=== PATIENT | female | born 1970 | race Caucasian/White ===

== ENCOUNTER 2016-11-23 15:11 | Inpatient (IN) | payer OTHER ==
[~2016-11-23] VITALS: Ht 157.5 cm; Wt 66.2 kg
[~2016-11-23 15:11] MED LIST: CONZIP100 MG PO; OXYCODONE5 M1 PO; XANAX0.5 M1 PO; ZOLOFT25 M1 PO
--- NOTE | 2016-11-23 15:27 | NUR ---
Informed waiting has been performed.
--- NOTE | 2016-11-23 15:27 | NUR ---
TRIAGE: PT TO ER C/C "I THINK I'M HAVING SOME MENTAL HEALTH ISSUES. I HAVE A THYROID PROBLEM AND I'M NOT SURE THAT THE MEDICATIONS ARE WORKING PROPERLY. I'M JUST VERY OVERWHELMED AND NOT FEELING VERY WELL." DENIES SI/HI. DENIES ANY ETOH OR SUBSTANCE USE/ABUSE. [facility].
--- NOTE | 2016-11-23 18:48 | ED PSYCHIATRIC COMPLAINT ---
History of Present Illness General Chief Complaint: General Adult Stated Complaint: "I JUST WANT TO TALK TO A DOCTOR,PLEASE" Source: patient, old records Exam Limitations: no limitations Allergies Coded Allergies: NO KNOWN ALLERGIES (11/23/16) Triage Note: TRIAGE: PT TO ER C/C "I THINK I'M HAVING SOME MENTAL HEALTH ISSUES. I HAVE A THYROID PROBLEM AND I'M NOT SURE THAT THE MEDICATIONS ARE WORKING PROPERLY. I'M JUST VERY OVERWHELMED AND NOT FEELING VERY WELL." DENIES SI/HI. DENIES ANY ETOH OR SUBSTANCE USE/ABUSE. [facility]. Triage Nurses Notes Reviewed? yes HPI: 46-year-old female with history of depression presents with complaints of feeling depressed, she denies specific suicidality at this time but feels as though she goes through periods in the day where she has thoughts of committing suicide. She has no active plan. She denies any drug or alcohol use. She denies any change in her medications. She is on thyroid medication and she is concerned that her thyroid is not working properly causing her to be more depressed. She has no nausea or vomiting no fever. She is taking methadone and clonidine, has not missed any doses and there was no recent change in medication. She would like to speak to a crisis counselor regarding her mental health issues. She does not have a psychiatric counselor at the moment. (CHECO SMITH) Vital Signs & Intake/Output Vital Signs & Intake/Output Vital Signs Date Time Temp Pulse Resp B/P Pulse O2 O2 Flow FiO2 Ox Delivery Rate 11/25 0819 98.1 80 18 128/78 / 0751 98.1 80 128/78 11/24 2206 98.7 89 18 110/88 11/24 1940 98.7 89 110/88 11/24 1542 99.1 92 119/80 03/ 1317 98.9 91 18 137/81 99 Room Air ED Intake and Output 11/25 0000 11/24 1200 Intake Total Output Total Balance Patient 146 lb Weight Reconcile Medications Albuterol Sulfate (Proair Hfa) 90 MCG HFA.AER.AD 2 PUF INH PRN ASTHMA ( Reported) Clonidine HCl 0.1 MG TABLET 1 TAB PO BID ANXIETY (Reported) Levothyroxine Sodium 88 MCG TABLET 1 TAB PO DAILY THYROID (Reported) Methadone HCl 5 MG/5 ML SOLUTION 37 MG PO DAILY MENTAL HEALTH (Reported) (LARISA ABURTO MD) Past History Travel History Traveled to [place] past 21 day No Medical History Any Pertinent Medical History? 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 No (CHECO SMITH) Review of Systems Review of Systems Constitutional: Reports: see HPI. EENTM: Reports: no symptoms. Respiratory: Reports: no symptoms. Cardiovascular: Reports: no symptoms. GI: Reports: no symptoms. Genitourinary: Reports: no symptoms. Musculoskeletal: Reports: no symptoms. Skin: Reports: no symptoms. Neurological/Psychological: Reports: see HPI. Hematologic/Endocrine: Reports: no symptoms. Immunologic/Allergic: Reports: no symptoms. All Other Systems: Reviewed and Negative (CHECO SMITH) Physical Exam Physical Exam General Appearance: well developed/nourished Head: atraumatic, normal appearance Eyes: Bilateral: normal appearance, PERRL, EOMI. 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 CRISIS CONSULT OBTAINED (LARISA ABURTO MD) Progress Hand-Off Endorsed To: LARISA ABURTO MD Endorsed Time: 1947 Pending: other (CRISIS EVAL) Comments: Patient states that she did not get her methadone dose this morning she was feeling well. She takes 37 mg per day. I discussed this with the [facility], I called the on-call clinician, [phone] who confirms that she did not make it to her appointment today. I told her that I would give her 37 mg dose tonight. The on-call clinician like us to call her if the patient is going to be admitted or kept overnight. She did state that she has been seeing a psychiatrist several times this month on the and on the as well for her mental health issues. (CHECO SMITH) Differential Diagnosis: drug intoxication, drug overdose, drug withdrawal, electrolyte abnormality Plan of Care: Orders Procedure Date/time Status PHYSICIAN CONSULT 11/25 UNK Active Regular Diet 11/24 D Active Vital Signs 11/24 1438 Active Inpt Psych Teach/Educate 11/24 1438 Active Nutritional Intake, Monitor 11/24 1438 Active Inpt Psych Auricular Acupunctu 11/24 1438 Active Add-on Test (ER Only) 11/24 1237 Active EKG 11/24 1209 Active Patient Data - inpatient psych 11/24 1201 Active Admit to inpatient psych 11/24 1201 Active URINE 11/24 0741 Complete Vital Signs 11/24 UNK Complete Nursing Misc 11/24 UNK Active Alternative Nursing Therapy 11/24 UNK Active Activity/Ambulation 11/24 UNK Complete MISSING MEDICATION FORM 11/24 UNK Active Intake & Output 11/23 1921 Complete Current Medications Sig/Jacob Start time Last Medication Dose Stop Time Status Admin Acetaminophen 650 MG Q6P PRN 11/24 1215 AC (Tylenol) Al Hydroxide/Mg 30 ML Q4-6 PRN PRN 11/24 1215 AC Hydroxide (Maalox Plus) Albuterol Sulfate 2 PUF Q6P PRN 11/24 1215 AC (Ventolin) Gabapentin 300 MG Q6P PRN 11/24 1215 AC (Neurontin) Magnesium Hydroxide 30 ML AT BEDTIME PRN 11/24 1215 AC (Milk Of Magnesia) Melatonin 5 MG AT BEDTIME NEED.. 11/24 1215 AC (Melatonin) Laboratory Tests 11/24/16 1208: Urine Test Cancelled Hand-Off Endorsed To: CED DE SANTIAGO MD Endorsed Time: 0700 Pending: consult (CRISIS) (LARISA ABURTO MD) Hand-Off Endorsed To: ESTEFANI LONDON DO Endorsed Time: 150 Pending: consult (CED DE SANTIAGO MD) Departure Departure Disposition: STILL A PATIENT Condition: Stable Clinical Impression Primary Impression: Depression Qualifiers: Depression Type: unspecified Qualified Code: F32.9 - Major depressive disorder, single episode, unspecified Referrals: PATIENT HAS NO PRIMARY CARE DR (PCP/Family) Departure Forms: Customer Survey General Discharge Information (CHECO SMITH) PA/LOG CUTTER Co-Sign Statement Statement: ED Attending supervision documentation- [] I saw and evaluated the patient. I have also reviewed all the pertinent lab results and diagnostic results. I agree with the findings and the plan of care as documented in the PA's/LOG CUTTER's documentation. [x] I have reviewed the ED Record and agree with the PA's/LOG CUTTER's documentation. [] Additions or exceptions (if any) to the PAs/LOG CUTTER's note and plan are summarized below: [] (ESTEFANI LONDON DO) called the on-call clinician, [phone] who confirms that she did not make it to her appointment today. I told her that I would give her 37 mg dose tonight. The on-call clinician like us to call her if the patient is going to be admitted or kept overnight. She did state that she has been seeing a psychiatrist several times this month on the and on the as well for her mental health issues. (CHECO SMITH) Differential Diagnosis: drug intoxication, drug overdose, drug withdrawal, electrolyte abnormality Hand-Off Endorsed To: CED DE SANTIAGO MD Endorsed Time: 0700 Pending: consult (CRISIS) (LARISA ABURTO MD) Hand-Off Endorsed To: ESTEFANI LONDON DO Endorsed Time: 150 Pending: consult (CED DE SANTIAGO MD) Departure Departure Disposition: STILL A PATIENT Condition: Stable Clinical Impression Primary Impression: Depression Qualifiers: Depression Type: unspecified Qualified Code: F32.9 - Major depressive disorder, single episode, unspecified Referrals: PATIENT HAS NO PRIMARY CARE DR (PCP/Family) Departure Forms: Customer Survey General Discharge Information (CHECO SMITH) PA/LOG CUTTER Co-Sign Statement Statement: ED Attending supervision documentation- [] I saw and evaluated the patient. I have also reviewed all the pertinent lab results and diagnostic results. I agree with the findings and the plan of care as documented in the PA's/LOG CUTTER's documentation. [x] I have reviewed the ED Record and agree with the PA's/LOG CUTTER's documentation. [] Additions or exceptions (if any) to the PAs/LOG CUTTER's note and plan are summarized below: [] (ESTEFANI LONDON DO)
[2016-11-23 19:24] LABS: ABSOLUTE BASOPHIL COUNT 0.1 /CUMM (0.0-0.2); ABSOLUTE EOSINOPHIL COUNT 0.1 /CUMM (0.0-0.7); ABSOLUTE GRANULOCYTE CT 5.6 /CUMM (1.4-6.5); ABSOLUTE LYMPH COUNT 2.7 /CUMM (1.2-3.4); ABSOLUTE MONOCYTE COUNT 0.6 /CUMM (0.10-0.60); BASOPHIL % 1.1 % (0.0-2.0); EOSINOPHIL % 1.5 % (0-5); GRANULOCYTE % 61.3 % (42.2-75.2); HEMATOCRIT 42.5 % (37-47); MEAN CORPUSCULAR HGB 29.9 PG (27.0-31.0); MEAN CORPUSCULAR HGB CONC 33.3 G/DL (33.0-37.0); MEAN CORPUSCULAR VOLUME 89.7 FL (81.0-99.0); MEAN PLATELET VOLUME 8.4 FL (7.4-10.4); PLATELET COUNT 293 /CUMM (130-400); RBC DISTRIBUTION WIDTH 12.9 % (11.5-14.5); RED BLOOD CELL CT 4.74 /CUMM (4.20-5.40); WHITE BLOOD CELL COUNT 9.1 /CUMM (4.8-10.8)
--- NOTE | 2016-11-23 19:44 | NUR ---
PHARMACY CALLED FOR MEDICATION.
[2016-11-23] MEDS ORDERED: METHADONE H5 MG/5 M2 PO (20:06)
[2016-11-23] MEDS ORDERED: PROAIR HFA8.5 GM INH (20:07)
[2016-11-23] MEDS ORDERED: CLONIDINE HCL0.1 MG PO (20:07)
[2016-11-23] MEDS ORDERED: LEVOTHYROXINE88 MCG PO (20:07)
--- NOTE | 2016-11-23 20:16 | NUR ---
PT MEDICATED WITH 35MG METHADONE PO.
--- NOTE | 2016-11-23 20:35 | NUR ---
URINE SPECIMEN REQUESTED. PT AMBULATORY TO RESTROOM WITH FAST AND STEADY GAIT.
--- NOTE | 2016-11-23 20:48 | NUR ---
PT RETURNS FROM RESTROOM, STATES THAT SHE IS UNABLE TO URINATE AT THIS TIME.
--- NOTE | 2016-11-23 21:16 | ED PSY CRISIS COLLATERAL NOTE ---
See Addendum Collateral Note Collateral Note Family/Inform/Kyle Contacts: Sw spoke with the patients son, Harinder Anand ([phone]), for collateral information. Harinder notes that his mother began to have mental health issues about 1 year ago. He is not able to articulate any trigger for her sudden symptoms. He notes that she was admitted to [facility] (about 1 year ago) and [facility] (May 2016). He states since being discharged from [facility], that she was doing well, until 1 week ago. He states that she started "acting weird," and making paranoid statements. Harinder notes that she began to state that "everyone is out to get her," noting she recently started to believe, that her family is also out to get her. Harinder notes that he spoke with his mother and she agreed to come to the hospital, however stated, "next time this happens, she's not going to deal with it." Harinder is not sure what she meant by this statement, however is questioning whether or not she is referring to suicide. He does report that she was recently anxious about a follow up on her Thyroid issues, and he is not sure if this triggered her increase in symptoms. He notes that she in on Methadone Maintenance and believes that is is for pain, however states that she never really talks about it. He does note that he has never known her to have any issues with addiction. He would like to be kept updated re: plan of care and is available if additional information is needed.
--- NOTE | 2016-11-23 21:44 | NUR ---
PT SITTING CALMLY IN HALLWAY DRINKING SONI MONSE. PT REPORTS BEING ON METHADONE MAINTENANCE OF 35MG/DAY THROUGH [facility] IN [place]. PT REPORTS SHE HAS BEEN FEELING ANXIOUS, HAVING POOR SLEEP AND NO CHANGE IN APPETITE. SITTER AT BEDSIDE FOR SAFETY
--- NOTE | 2016-11-23 21:46 | NUR ---
Crisis consult received, however the patient has not provided a urine at this time. The patient will be held over and evaluated in the AM. SW spoke to her son, for collateral information, please see separate note. Case discussed with STEVE Barnye and Dr. Mccann.
--- NOTE | 2016-11-23 22:35 | NUR ---
PT CALM AND COOPERATIVE LYING ON STRETCHER IN HU E. PT PROVIDED WITH BOX LUNCH. PT MADE AWARE WE WILL NEED A URINE SAMPLE. SITTER AT BEDSIDE.
--- NOTE | 2016-11-24 00:10 | NUR ---
AWAKE ON STRETCHER IN HU SITTER AT BEDSIDE. CO FEELING ANXIOUS. "I USUALLY TAKE CLONIDINE"
--- NOTE | 2016-11-24 00:17 | NUR ---
DR ABURTO AWARE CLONIDINE ORDERED AND GIVEN PO
--- NOTE | 2016-11-24 03:20 | NUR ---
RESTLESS. WALKING AROUND BH AND POD 2.
--- NOTE | 2016-11-24 05:15 | NUR ---
CONTINUES TO PACE AROUND BH AND POD 2. STATES "I AM JUST VERY WORRIED ABOUT THINGS AND WANT TO GET IT ALL TAKEN CARE OF" PT REINFORCED THAT SHE WILL BE EVALUATED THIS AM WHEN CRISIS COMES IN THIS AM.
--- NOTE | 2016-11-24 07:30 | NUR ---
PT AMBULATING IN HALLWAY, ASKING FOR CLOTHES BACK. PT AWARE SHE NEEDS TO SEE CRISIS THIS AM. Informed waiting has been performed.
--- NOTE | 2016-11-24 07:47 | NUR ---
URINE TRIO SENT TO LAB.
--- NOTE | 2016-11-24 09:30 | NUR ---
PT HAS BEEN SITTING CALMLY IN CHAIR IN HALLWAY AWAITING CRISIS DISPO. SITTER PRESENT.
--- NOTE | 2016-11-24 11:15 | NUR ---
PT SPEAKING WITH CRISIS
--- NOTE | 2016-11-24 11:21 | ED PSYCH CRISIS CONSULTATION ---
Crisis Consult Basic Assessment Date of Consult: 11/24/16 Responsible Person/Accompanied By: self Insurance Authorization: Insurance #1: Insurance name: [employer] Phone number: Policy number: [id number] Group number: Authorization number: ED Provider: Patient's ED Provider: CRISELDA RYDER,LARISA Dong Primary Care Physician: Patient's PCP: PATIENT HAS NO PRIMARY CARE DR PCP's Phone Number: Current Psychiatrist: [facility] Chief Complaint: General Adult Patient's Quote: "Am I being admitted as myself or someone else?" Present Illness: Pt is a 46yo female who self presented at the advise of her son Harinder Anand who was worried she has decompensated over the past week. Please see crisis collateral note. Pt has 2 prior inpt psych admits for Depression with psychotic features in 2016. First was [facility] and then [facility] in May 2016. Pt is currently in Out pt tx at [facility] [place]. Upon crisis eval, pt presents as depressed,anxious, paranoid, and some what confused, disorganized, nonsensical, and thought blocking. Pt stated that she is having difficulty communicating what she is going through and is not sure how to explain it. Pt stated that she has been hearing voices, but when asked what the voices say, she further explains that she can not explain it and that it is more like something is controlling her and she is not sure if she is doing the right thing and gets very anxious about it and it "gets worse when they leave." When asked about who she was referring to when she says, "when they leave." pt was not able to specify who. pt states that she lives alone and feels isolated. Pt reports that it has gotten so bad that she stopped going to work over the past 2 days because she has not been able to function. Pt was noted to pace up and down the halls asking to speak with her son. Later she stated that her parents are here and she needs to speak with them, but they were not present in the ED. Pt is agreeable to being admitted to [facility] and signed in voluntarily. When she was signing in, she asked "am I being admitted as myself or someone else?" Case reviewed with Dr. Dawkins of Psychiatry and who agrees pt may be admitted. Patient's Address: [address] [place] [id number] Other Phone Number: Who Do You Live With? Patient/Self Family/Informants Interviewed: son Harinder Allergies - Coded Allergies: NO KNOWN ALLERGIES (11/23/16) Current Medications - Scheduled Medications Clonidine HCl 0.1 MG TABLET 1 TAB PO BID ANXIETY #60 (Reported) Entered as Reported by COLLEEN SAVAGE on 11/23/162006 Levothyroxine Sodium 88 MCG TABLET 1 TAB PO DAILY THYROID #90 (Reported) Entered as Reported by COLLEEN SAVAGE on 11/23/162006 Methadone HCl 5 MG/5 ML SOLUTION 37 MG PO DAILY MENTAL HEALTH (Reported) Entered as Reported by COLLEEN SAVAGE on 11/23/162005 Scheduled PRN Medications Albuterol Sulfate (Proair Hfa) 90 MCG HFA.AER.AD 2 PUF INH PRN ASTHMA #1 ( Reported) Entered as Reported by COLLEEN SAVAGE on 11/23/162006 Laboratory Results: Laboratory Tests 11/24/16 0740: Urine Opiates Screen < 100.00, Methadone Screen > 735 H, Barbiturate Screen < 60, Ur Phencyclidine Scrn < 6.00, Amphetamines Screen 106, U Benzodiazepines Scrn < 85, Urine Cocaine Screen < 50, Urine Cannabis Screen < 5.00 11/23/16 191: Anion Gap 10, Estimated GFR > 60, BUN/Creatinine Ratio 8.6, Glucose 102 H, Calcium 10.0, Total Bilirubin 0.7, AST 25, ALT 32, Alkaline Phosphatase 96, Total Protein 7.7, Albumin 4.7, Globulin 3.0, Albumin/Globulin Ratio 1.6, TSH 1.750, Free T4 2.02 H, Thyroxine Binding Indx 36.2, CBC w Diff NO MAN DIFF REQ, RBC 4.74, MCV 89.7, MCH 29.9, RDW 12.9, MPV 8.4, Gran % 61.3, Lymphocytes % 29.5 , Monocytes % 6.6, Eosinophils % 1.5, Basophils % 1.1, Absolute Granulocytes 5.6 , Absolute Lymphocytes 2.7, Absolute Monocytes 0.6, Absolute Eosinophils 0.1, Absolute Basophils 0.1, PUBS MCHC 33.3, Serum Alcohol < 10.0 11/23/16 1842: Methadone Screen Cancelled, Barbiturate Screen Cancelled, Ur Phencyclidine Scrn Cancelled, Amphetamines Screen Cancelled, U Benzodiazepines Scrn Cancelled, Urine Cocaine Screen Cancelled, Urine Cannabis Screen Cancelled Past History Past Medical History Neurological: NONE EENT: NONE Cardiovascular: NONE Respiratory: NONE Gastrointestinal: NONE Hepatic: NONE Renal: NONE Musculoskeletal: disk herniation Psychiatric: anxiety, chronic pain disorder, opioid dependence (methadone for pain management) Endocrine: NONE Blood Disorders: anemia Cancer(s): NONE 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 Psychiatric Treatment History Psych Treatment Psychiatric Treatment Yes Inpatient Treatment Yes Outpatient Treatment Yes [facility] of [facility] Reason for Treatment Depression with psychotic features Dates of Treatment 2016 Response to Treatment variable Diagnosis by History: Depression with psychotic features Substance Use/Abuse History Drug Use/Abuse Substances Used/Abused Yes Substance Used/Abused Other (list in comments) (Methadone) How much used/taken 37mg How often daily as prescribed by [facility] Substance Abuse Treatment Substance Abuse Treatment Past Substance Abuse [place] No Inpatient Treatment No Outpatient Treatment No Current Mental Status Mental Status Orientation: Confused Affect: Anxious, Blunted, Constricted, Depressed, Flat, Hopeless, Sad Speech: Delayed, Evasive Neuro-vegetative: Anhedonia, Concentration Poor, Energy Decreased, Helpless, Loss of Interest Appearance Appearance- Dress/Hygiene: unkempt, good eye contact Behaviors Thought Process: Irrational, Loose Association, Thought Blocking Thought Content: Auditory Hallucinations, Delusions, Paranoid, Thought Blocking Memory: WNL Insight: Fair SI/HI Risk Assessment Past Suicidal Ideation/Attempts Yes Current Suicidal Ideation/Att Yes Past Homicidal Ideation/Att: No Current Homicidal Ideation/Attempts No Degree of Intent: Thoughts/No Intent Gravely Disabled: Inability Risk Factors: chronic/serious med cond., high anxiety/distress, SA/MH hospitalized, lives alone, limited support Lethality Ratin PTSD Checklist PTSD Done? 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 Current GAF: 25 Comments: On Methdone 37mg throught [facility] due to chronic back pain Hypothyroidism Departure Disposition Psych Medical Clearance Date: 11/24/16 Medically Cleared at: 1045 Time Started: 1045 Time Ended: 1115 Psychiatrist Consulted: Jomar Dawkins MD Date Disposition Established: 11/24/16 Time Disposition Established: 1145 Plan for Disposition - Modality: Inpatient Psychiatry Facility: [facility] Rationale for Disposition: safety and stabilization of sx Type of IP Admission: Voluntary Referrals PATIENT HAS NO PRIMARY CARE DR (PCP/Family)
--- NOTE | 2016-11-24 12:25 | NUR ---
MED WITH NICOTINE 14MG, MULTIVITAMIN, SYNTHROID 0.088MG, AND ZYPREXA 5 MG PO, TOLERATED WELL, PT REMAINS CALM AND COOPERATIVE.
--- NOTE | 2016-11-24 13:36 | IP CRISIS DIAG ASSESS PSYCH ---
Diagnostic Assessment Basic Assessment Insurance Authorization: Insurance #1: Insurance name: YUMIKO Phone number: [phone] Policy number: [id number] Group number: Authorization number: [id number] D[place] approved 11/24-11/28/16 Primary Care Physician: Patient's PCP: PATIENT HAS NO PRIMARY CARE DR PCP's Phone Number: Patient's Quote: "Am I being admitted as myself or someone else?" Present Illness: 46-year-old female with history of depression presents with complaints of feeling depressed, she denies specific suicidality at this time but feels as though she goes through periods in the day where she has thoughts of committing suicide. She has no active plan. She denies any drug or alcohol use. She denies any change in her medications. She is on thyroid medication and she is concerned that her thyroid is not working properly causing her to be more depressed. She has no nausea or vomiting no fever. She is taking methadone and clonidine, has not missed any doses and there was no recent change in medication. She would like to speak to a crisis counselor regarding her mental health issues. She does not have a psychiatric counselor at the moment. (JANESSA HAND,CHECO) Cassandra spoke with the patients son, Harinder Anand ([phone]), for collateral information. Harinder notes that his mother began to have mental health issues about 1 year ago. He is not able to articulate any trigger for her sudden symptoms. He notes that she was admitted to [facility] (about 1 year ago) and [facility] (May 2016). He states since being discharged from [facility], that she was doing well, until 1 week ago. He states that she started "acting weird," and making paranoid statements. Harinder notes that she began to state that "everyone is out to get her," noting she recently started to believe, that her family is also out to get her. Harinder notes that he spoke with his mother and she agreed to come to the hospital, however stated, "next time this happens, she's not going to deal with it." Harinder is not sure what she meant by this statement, however is questioning whether or not she is referring to suicide. He does report that she was recently anxious about a follow up on her Thyroid issues, and he is not sure if this triggered her increase in symptoms. He notes that she in on Methadone Maintenance and believes that is is for pain, however states that she never really talks about it. He does note that he has never known her to have any issues with addiction. He would like to be kept updated re: plan of care and is available if additional information is needed. 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 Please see crisis collateral note above. Pt has 2 prior inpt psych admits for Depression with psychotic features in 2016. First was [facility] and then [facility] in May 2016. Pt is currently in Out pt tx at [facility] [place]. Upon crisis eval, pt presents as depressed,anxious, paranoid, and some what confused, disorganized, nonsensical, and thought blocking. Pt stated that she is having difficulty communicating what she is going through and is not sure how to explain it. Pt stated that she has been hearing voices, but when asked what the voices say, she further explains that she can not explain it and that it is more like something is controlling her and she is not sure if she is doing the right thing and gets very anxious about it and it "gets worse when they leave." When asked about who she was referring to when she says, "when they leave." pt was not able to specify who. pt states that she lives alone and feels isolated. Pt reports that it has gotten so bad that she stopped going to work over the past 2 days because she has not been able to function. Pt was noted to pace up and down the halls asking to speak with her son. Later she stated that her parents are here and she needs to speak with them, but they were not present in the ED. Pt is agreeable to being admitted to [facility] and signed in voluntarily. When she was signing in, she asked "am I being admitted as myself or someone else?" Case reviewed with Dr. Dawkins of Psychiatry and who agrees pt may be admitted. Patient's Address: [address] [place] [id number] Other Phone Number: Who Do You Live With? Patient/Self Feel Safe Where You Live? No (thinks she is being controled) Feel Safe in Your Relationship No (paraqnoia) If No, Please Elaborate: Pt thinks that others are controling her Marital Status: single Do You Have Children? Yes Ages? 20, 23, 30 Primary Language? Liberian Language(s) Spoken At Home: Liberian Family/Informants Interviewed: son Harinder Allergies - Coded Allergies: NO KNOWN ALLERGIES (11/23/16) Current Medications - Scheduled Medications Clonidine HCl 0.1 MG TABLET 1 TAB PO BID ANXIETY #60 (Reported) Entered as Reported by COLLEEN SAVAGE on 11/23/162006 Levothyroxine Sodium 88 MCG TABLET 1 TAB PO DAILY THYROID #90 (Reported) Entered as Reported by COLLEEN SAVAGE on 11/23/162006 Methadone HCl 5 MG/5 ML SOLUTION 37 MG PO DAILY MENTAL HEALTH (Reported) Entered as Reported by COLLEEN SAVAGE on 11/23/162005 Scheduled PRN Medications Albuterol Sulfate (Proair Hfa) 90 MCG HFA.AER.AD 2 PUF INH PRN ASTHMA #1 ( Reported) Entered as Reported by COLLEEN SAVAGE on 11/23/162006 Lab Results: Laboratory Tests 11/24/16 1208: Urine Test Cancelled 11/24/16 0741: Urine Test NEGATIVE 11/24/16 0740: Urine Opiates Screen < 100.00, Methadone Screen > 735 H, Barbiturate Screen < 60, Ur Phencyclidine Scrn < 6.00, Amphetamines Screen 106, U Benzodiazepines Scrn < 85, Urine Cocaine Screen < 50, Urine Cannabis Screen < 5.00 11/23/16 1911: Anion Gap 10, Estimated GFR > 60, BUN/Creatinine Ratio 8.6, Glucose 102 H, Calcium 10.0, Total Bilirubin 0.7, AST 25, ALT 32, Alkaline Phosphatase 96, Total Protein 7.7, Albumin 4.7, Globulin 3.0, Albumin/Globulin Ratio 1.6, TSH 1.750, Free T4 2.02 H, Thyroxine Binding Indx 36.2, CBC w Diff NO MAN DIFF REQ, RBC 4.74, MCV 89.7, MCH 29.9, RDW 12.9, MPV 8.4, Gran % 61.3, Lymphocytes % 29.5 , Monocytes % 6.6, Eosinophils % 1.5, Basophils % 1.1, Absolute Granulocytes 5.6 , Absolute Lymphocytes 2.7, Absolute Monocytes 0.6, Absolute Eosinophils 0.1, Absolute Basophils 0.1, PUBS MCHC 33.3, Serum Alcohol < 10.0 11/23/16 1842: Methadone Screen Cancelled, Barbiturate Screen Cancelled, Ur Phencyclidine Scrn Cancelled, Amphetamines Screen Cancelled, U Benzodiazepines Scrn Cancelled, Urine Cocaine Screen Cancelled, Urine Cannabis Screen Cancelled Toxicology Screen Completed? Yes Results: positive Past History Past Surgical History Surgical History FOOT SURGERY Abuse/Trauma History Trauma History/Current Trauma: the loss of her father, has always been hard Patient's Age at Time of Trauma: 4 History of Trauma/Abuse Treatment? No Psychosocial History Strengths/Capabilities: Patient seeking help and responsible for own mental health Physical Limitations (Interventions): Patient reports chronic back pain. Psychiatric Treatment History Psych Treatment Psychiatric Treatment Yes Inpatient Treatment Yes Outpatient Treatment Yes [facility] Reason for Treatment Depression with psychotic features Dates of Treatment 2016 Response to Treatment variable Diagnosis by History: Depression with psychotic features Risk Factors: chronic/serious med cond., high anxiety/distress, SA/MH hospitalized, lives alone, limited support Substance Use/Abuse History Drug Use/Abuse minimum 12mo Hx Substances Used/Abused Yes Substance Used/Abused Other (list in comments) (Methadone) How much used/taken 37mg How often daily as prescribed by [facility] Substance Abuse Treatment Substance Abuse Treatment Past Substance Abuse [place] No Inpatient Treatment No Outpatient Treatment No Education History Highest Level of Education: high school/GED, bachelor's degree Current Mental Status Mental Status Orientation: Confused Affect: Anxious, Blunted, Constricted, Depressed, Flat, Hopeless, Sad Speech: Delayed, Evasive Neuro-vegetative: Anhedonia, Concentration Poor, Energy Decreased, Helpless, Loss of Interest Appearance Appearance- Dress/Hygiene: unkempt, good eye contact Behaviors Thought Process: Irrational, Loose Association, Thought Blocking Thought Content: Auditory Hallucinations, Delusions, Paranoid, Thought Blocking Memory: WNL Insight: Fair SI/HI Risk Assessment - Minimum 6mo History- Past Suicidal Ideation/Attempts Yes Current Suicidal Ideation/Att Yes Past Homicidal Ideation/Att: No Current Homicidal Ideation/Attempts No Degree of Intent: Thoughts/No Intent Gravely Disabled: Inability Risk Factors: chronic/serious med cond., high anxiety/distress, SA/MH hospitalized, lives alone, limited support Lethality Ratin Needs/Init TX Plan/Goals: safety and stabilization of sx, individual group and family therapy, med eval AUDIT-C Questionnaire: AUDIT-C Questionnaire: Response Value ETOH use in the past year Never 0 # drinks typical/day Doesn't Drink 0 6 or > drinks per occasion Never 0 Total 0 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 Current GAF: 25 Comments: On Methdone 37mg throught [facility] due to chronic back pain Hypothyroidism
--- NOTE | 2016-11-24 13:46 | SOCIAL WORKER SOCIAL HX PSYCH ---
Social History Basic Assessment Insurance Authorization: Insurance #1: Insurance name: YUMIKO Phone number: Policy number: [id number] Group number: Authorization number: Curr Source of Income/Entitlements: employment Primary Care Physician: Patient's PCP: PATIENT HAS NO PRIMARY CARE DR PCP's Phone Number: Present Problem: 46-year-old female with history of depression presents with complaints of feeling depressed, she denies specific suicidality at this time but feels as though she goes through periods in the day where she has thoughts of committing suicide. She has no active plan. She denies any drug or alcohol use. She denies any change in her medications. She is on thyroid medication and she is concerned that her thyroid is not working properly causing her to be more depressed. She has no nausea or vomiting no fever. She is taking methadone and clonidine, has not missed any doses and there was no recent change in medication. She would like to speak to a crisis counselor regarding her mental health issues. She does not have a psychiatric counselor at the moment. (JANESSA HAND,CHECO) Cassandra spoke with the patients son, Harinder Anand ([phone]), for collateral information. Harinder notes that his mother began to have mental health issues about 1 year ago. He is not able to articulate any trigger for her sudden symptoms. He notes that she was admitted to [facility] (about 1 year ago) and [facility] (May 2016). He states since being discharged from [facility], that she was doing well, until 1 week ago. He states that she started "acting weird," and making paranoid statements. Harinder notes that she began to state that "everyone is out to get her," noting she recently started to believe, that her family is also out to get her. Harinder notes that he spoke with his mother and she agreed to come to the hospital, however stated, "next time this happens, she's not going to deal with it." Harinder is not sure what she meant by this statement, however is questioning whether or not she is referring to suicide. He does report that she was recently anxious about a follow up on her Thyroid issues, and he is not sure if this triggered her increase in symptoms. He notes that she in on Methadone Maintenance and believes that is is for pain, however states that she never really talks about it. He does note that he has never known her to have any issues with addiction. He would like to be kept updated re: plan of care and is available if additional information is needed. 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 Please see crisis collateral note above. Pt has 2 prior inpt psych admits for Depression with psychotic features in 2015. First was [facility] and then [facility] in May 2016. Pt is currently in Out pt tx at [facility]. Upon crisis eval, pt presents as depressed,anxious, paranoid, and some what confused, disorganized, nonsensical, and thought blocking. Pt stated that she is having difficulty communicating what she is going through and is not sure how to explain it. Pt stated that she has been hearing voices, but when asked what the voices say, she further explains that she can not explain it and that it is more like something is controlling her and she is not sure if she is doing the right thing and gets very anxious about it and it "gets worse when they leave." When asked about who she was referring to when she says, "when they leave." pt was not able to specify who. pt states that she lives alone and feels isolated. Pt reports that it has gotten so bad that she stopped going to work over the past 2 days because she has not been able to function. Pt was noted to pace up and down the halls asking to speak with her son. Later she stated that her parents are here and she needs to speak with them, but they were not present in the ED. Pt is agreeable to being admitted to [facility] and signed in voluntarily. When she was signing in, she asked "am I being admitted as myself or someone else?" Case reviewed with Dr. Dawkins of Psychiatry and who agrees pt may be admitted. Primary Language? German Language(s) Spoken At Home: German Living Situation Rents or Owns Home? rents Other Living Arrangement: lives by herself Feel Safe Where You Are Living No Feel Safe in Relationships? No Comments: paranoia Allergies - Coded Allergies: NO KNOWN ALLERGIES (11/23/16) Current Medications - Scheduled Medications Clonidine HCl 0.1 MG TABLET 1 TAB PO BID ANXIETY #60 (Reported) Entered as Reported by COLLEEN SAVAGE on 11/23/162006 Levothyroxine Sodium 88 MCG TABLET 1 TAB PO DAILY THYROID #90 (Reported) Entered as Reported by COLLEEN SAVAGE on 11/23/162006 Methadone HCl 5 MG/5 ML SOLUTION 37 MG PO DAILY MENTAL HEALTH (Reported) Entered as Reported by COLLEEN SAVAGE on 11/23/162005 Scheduled PRN Medications Albuterol Sulfate (Proair Hfa) 90 MCG HFA.AER.AD 2 PUF INH PRN ASTHMA #1 ( Reported) Entered as Reported by COLLEEN SAVAGE on 11/23/162006 Past History Past Medical History Neurological: NONE EENT: NONE Cardiovascular: NONE Respiratory: NONE Gastrointestinal: NONE Hepatic: NONE Renal: NONE Musculoskeletal: disk herniation Psychiatric: anxiety, chronic pain disorder, opioid dependence (methadone for pain management) Endocrine: NONE Blood Disorders: anemia Cancer(s): NONE INTERNET SPECIALIST/Reproductive: NONE Past Surgical History Surgical History: non-contributory /Family History Place/Country of Origin: [place] Childhood Family Constellation: Mother, stepfather and grandparents. and one sister. Bio father passsed when pt was 4. Primary Childhood Caretakers: mother, step-parent Family Life During Childhood: stable/normal DCF Involvement? No Relationship w/Mother: good. Relationship w/Father: good, live in [place] parents are still . Any Sibling(s)? Yes Sibling's Gender(s)/Age(s): female Sibling 1: Relationship w/Sibling(s): supportive, good. Relationship w/Friends: none Family Psych/Sub Abuse/Add Hx: stepbrother had drug problem unsure of details. Number of Pregnancies: 6 Number of Miscarriages: 2 Number of Abortions: 1 Abuse/Trauma History Trauma History/Current Trauma: the loss of her father, has always been hard Patient's Age at Time of Trauma: 4 History of Trauma/Abuse Treatment? No Legal History Hx of Juvenile Legal Charges? No Psychosocial History Primary Support System: self Strengths/Capabilities: Patient seeking help and responsible for own mental health Physical Limitations (Interventions): Patient reports chronic back pain. Last Physical: 2014 History of Blackouts? No [place]/Social/Peer Relations most socializaing is with family Meaningful Activities: reading, walking, hiking Childhood Zoroastrian: Protestant Current Advent Affiliation: Protestant Is Spirituality Important to You? yes Are There Developmental Issues? No Milestones Achieved: fine motor, gross motor Psychiatric Treatment History Psych Treatment Inpatient Treatment Yes Outpatient Treatment Yes [facility] Reason for Treatment Depression with psychotic features Dates of Treatment 2016 Response to Treatment variable Diagnosis: Depression with psychotic features Risk Factors: chronic/serious med cond., high anxiety/distress, SA/MH hospitalized, lives alone, limited support Substance Use/Abuse History Drug Use/Abuse Substance Used/Abused Other (list in comments) (Methadone) How much used/taken 37mg How often daily as prescribed by [facility] Have You Ever Attended AA? 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 of Jobs in Last 5 Years: 1 Attendance: Normal Performance: Good History Have You Been in The ? No Current Mental Status Problem List: 1. Chronic back pain 2. Anxiety 3. Depression Mental Status Orientation: Confused Affect: Anxious, Blunted, Constricted, Depressed, Flat, Hopeless, Sad Speech: Delayed, Evasive Neuro-vegetative: Anhedonia, Concentration Poor, Energy Decreased, Helpless, Loss of Interest Appearance Appearance- Dress/Hygiene: unkempt, good eye contact Behaviors Thought Process: Irrational, Loose Association, Thought Blocking Thought Content: Auditory Hallucinations, Delusions, Paranoid, Thought Blocking Memory: WNL Insight: Fair SI/HI Risk Assessment Past Suicidal Ideation/Attempts Yes Current Suicidal Ideation/Att Yes Past Homicidal Ideation/Att: No Current Homicidal Ideation/Attempts No Degree of Intent: Thoughts/No Intent Gravely Disabled: Inability Lethality Ratin - Conclusion and Recommendations for treatment - and discharge planning Summary: 46-year-old female with history of depression presents with complaints of feeling depressed, she denies specific suicidality at this time but feels as though she goes through periods in the day where she has thoughts of committing suicide. She has no active plan. She denies any drug or alcohol use. She denies any change in her medications. She is on thyroid medication and she is concerned that her thyroid is not working properly causing her to be more depressed. She has no nausea or vomiting no fever. She is taking methadone and clonidine, has not missed any doses and there was no recent change in medication. She would like to speak to a crisis counselor regarding her mental health issues. She does not have a psychiatric counselor at the moment. (JANESSA HAND,CHECO) Cassandra spoke with the patients son, Harinder Anand ([phone]), for collateral information. Harinder notes that his mother began to have mental health issues about 1 year ago. He is not able to articulate any trigger for her sudden symptoms. He notes that she was admitted to [facility] (about 1 year ago) and [facility] (May 2016). He states since being discharged from [facility], that she was doing well, until 1 week ago. He states that she started "acting weird," and making paranoid statements. Harinder notes that she began to state that "everyone is out to get her," noting she recently started to believe, that her family is also out to get her. Harinder notes that he spoke with his mother and she agreed to come to the hospital, however stated, "next time this happens, she's not going to deal with it." Harinder is not sure what she meant by this statement, however is questioning whether or not she is referring to suicide. He does report that she was recently anxious about a follow up on her Thyroid issues, and he is not sure if this triggered her increase in symptoms. He notes that she in on Methadone Maintenance and believes that is is for pain, however states that she never really talks about it. He does note that he has never known her to have any issues with addiction. He would like to be kept updated re: plan of care and is available if additional information is needed. 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 Please see crisis collateral note above. Pt has 2 prior inpt psych admits for Depression with psychotic features in 2016. First was [facility] and then [facility] in May 2016. Pt is currently in Out pt tx at [facility]. Upon crisis eval, pt presents as depressed,anxious, paranoid, and some what confused, disorganized, nonsensical, and thought blocking. Pt stated that she is having difficulty communicating what she is going through and is not sure how to explain it. Pt stated that she has been hearing voices, but when asked what the voices say, she further explains that she can not explain it and that it is more like something is controlling her and she is not sure if she is doing the right thing and gets very anxious about it and it "gets worse when they leave." When asked about who she was referring to when she says, "when they leave." pt was not able to specify who. pt states that she lives alone and feels isolated. Pt reports that it has gotten so bad that she stopped going to work over the past 2 days because she has not been able to function. Pt was noted to pace up and down the halls asking to speak with her son. Later she stated that her parents are here and she needs to speak with them, but they were not present in the ED. Pt is agreeable to being admitted to [facility] and signed in voluntarily. When she was signing in, she asked "am I being admitted as myself or someone else?" Case reviewed with Dr. Dawkins of Psychiatry and who agrees pt may be admitted.
--- NOTE | 2016-11-24 14:15 | NUR ---
REPORT TO IDANIA MIEK.
--- NOTE | 2016-11-24 14:21 | NUR ---
PT GIVEN BACK 1 BELONGING BAG, 1 VALUABLE BAG. 1 BAG OF MEDS REMAINS LOCKED IN PHARMACY.
--- NOTE | 2016-11-24 14:25 | NUR ---
PT TO [facility] VIA W/C WITH SECURITY AND SITTER. CLINICAL STATUS UNCHANGED. PAPERWORK SENT.
[2016-11-24 15:42] VITALS: BP 119/80
--- NOTE | 2016-11-24 16:54 | NUR ---
Patient admitted from ED. Patient calm and cooperative reports increased anxiety and no recent stressors. Patient is alert and oriented to to person, place, time and situation. Patient currently denies SI/HI. Patient has a stable, flat affect. Not currently endorsing AH. Patient denies pain currently. PAtient reports son can make decisions for her in times of need. Information about advance directives have been provided. Endocrine consult indicated and visit will be made. Observeable skn areas, clean dry and intact. Looking forward to assisting patient with mental health
[2016-11-24 19:40] VITALS: BP 110/88
--- NOTE | 2016-11-24 21:26 | NUR ---
PT IS CALM, COOPERATIVE WITH STAFF AND PEERS, AND COMPLIANT WITH UNIT RULES. PT IS BOTH IN MILIEU AND IN PT ROOM, TAKING NAPS AT TIMES. PT MOOD IS STABLE, AFFECT IS EUTHYMIC, COMMUNICATION IS NORMAL, AND APPETITE IS NORMAL. PT DENIES SI AT THIS TIME.
--- NOTE | 2016-11-25 06:25 | NUR ---
PATIENT SLEPT ALL NIGHT WITH NO ISSUES.
[2016-11-25 07:51] VITALS: BP 128/78
--- NOTE | 2016-11-25 12:07 | CPS MD/APRN INITIAL ASSE PSYCH ---
Psychiatric Admission Medical Biller/Coder's Note Reviewed: Yes Patient Seen and Examined: Yes Identifying Information: Patient is a 46 y/o female. Chief Complaint: "My thoughts have been off." Reaction to Hospitalization: "I don't have a psychiatric issue. I'm pretty sure my symptoms are related to my thyroid." History of Present Illness Onset of Illness: Patient is a 46-year old female with a history of depression with psychotic features and hypothyroidism who presented to ED endorsing intermittent suicidal thoughts, depression, anxiety, paranoia, and was observed with disorganized thoughts, thought blocking and making nonsensical remarks. Patient was concerned that people were out to get her, and concerned that present state may be related to her thyroid function. On encounter today, the patient reported bringing herself to the ED after experiencing insomnia, intermittent AH, and difficulty concentrating over the last few weeks. She denied AH were command in nature. She described her thoughts as "scattered" and having difficulty articulating responses. She denied passive and active suicidal ideation, plans and intent. She denied homicidal ideation. She reported an absence of AH currently. Patient reported that she feels the cause of the above symptoms are related to her thyroid function, which was a rule out diagnosis during her last CPS admission in 05/2016 after an extensive endocrine work-up. 11/23/16 TSH and Thyroxine Binding Index were wnl. Free T4 was elevated at 2.02. Circumstances Leading to Admission: increased anxiety/depression, psychotic symptoms. 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 Substance Abuse History: Pt denied use of alcohol or illicits. Per chart history, patient with a 15 year history of prescription opiate abuse r /t to chronic pain issues. Reported now being prescribed methadone 37mg daily by [facility] for chronic pain. Reported that 1 week ago methadone dose was decreased from 45mg daily to 37mg daily. Patient informed she is receiving 35mg methadone daily and was agreeable to this. Pt reported vaping e-cigarrete daily. Allergies: Coded Allergies: NO KNOWN ALLERGIES (11/23/16) Home Med List: Clonidine 0.1mg twice daily (anxiety) Synthroid 88mcg every morning Methadone 37mg daily ([facility]) - Include any medical condition(s) that may - impact the patient's recovery/remission Past Medical History: -Disc herniation -Chronic pain -Hypothyroidism Past History Medical History Neurological: NONE EENT: NONE Cardiovascular: NONE Respiratory: NONE Gastrointestinal: NONE Hepatic: NONE Renal: NONE Musculoskeletal: disk herniation Psychiatric: anxiety, chronic pain disorder, opioid dependence (methadone for pain management) Endocrine: NONE Blood Disorders: anemia Cancer(s): NONE 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 Substance Use: Pt reported both her maternal uncle and brother had drug problems. Suicides: Pt denied. Social History Living Situation: Patient lives by herself in a rented apartment in [place]. Significant Relationships (family/friends): Family/friends Education: Bachelor's degree in accounting. Vocation/Occupation: Patient reported working FT at a [employer] doing [employer] work. Legal: Pt denied. Healthly Behaviors Screening Tobacco Screening Tobacco Use from ED Docu: Current Daily Use Daily Tobacco Use Amount/Type: Smokeless tobacco daily - If tobacco counseling indicated - the following topics are required. - #1 Recognizing dangerous situations. - #2 Coping Skills. - #3 Basic information about quitting. Status of Tobacco Cessation Counseling: #1, #2 AND #3 Completed Cessation Med Status: Nicotine Patch Ordered Alcohol Screening - ETOH screen POS if BAL >=80 or Audit-C>= M4/F3 Audit-C Score from Diag Assess: 0 Blood Alcohol Level: Laboratory Tests 11/23 1910 Toxicology Serum Alcohol (<10 MG/DL) < 10.0 Alcohol Use Screening Results: Neg per Audit C &/or BAL - If ETOH counseling indicated - the following topics are required. - #1 Express concern about the patient's - drinking at unhealthy levels, include informing - of national norms for moderate drinking: - men <= 14 drinks/week, max 4 drinks/occasion - women <= 7 drinks/week, max 3 drinks/occasion - #2 Providing feedback, including linking alcohol to - negative physical effects (liver injury, hypertension) - negative emotional effects (relationship problems and - depression) - negative occupational consequences (reduced work - performance) - #3 Advising the patient to abstain from alcohol or - to drink below national norms for moderate drinking - (as listed above). Status of ETOH Use Counseling: N/A B/C NO ETOH Use Metabolic Screening - Screen if on a Neuroleptic Medication - Metabolic screening should include: - Blood Pressure, BMI, Glucose or Hgb A1c, & a - Lipid profile from within the past 365 days. Metabolic Screening () Not Applicable, patient not on a neuroleptic. OR ([X]) Patient on a neuroleptic(s) . Enter below results for Glucose or Hemoglobin A1C, and lipid panel if obtained during the last 365 days. BMI: 26.700 Blood Pressure: 107/58 Laboratory Results (If applicable): Lab Cholesterol 225 MG/DL H 06/10/16 0640 Cholesterol/HDL Ratio 4 % 06/10/16 0640 Glucose 102 mg/dL H 11/23/16 1911 HDL Cholesterol 59 mg/dL 06/10/16 0640 LDL Cholesterol, Calc 139 mg/dL H 06/10/16 0640 Triglycerides 139 mg/dL 06/10/16 0640 Exam and Plan Mental Status Examination Ambulation Status: Steady and independent. Appearance: 46 y/o female, appeared older than stated age. Long hair, obese, discheveled. Attitude towards examiner: Calm, polite. Psychomotor activity: WNL Behavior: WNL Quality of speech: Some paucity in speech. Affect: Mostly constricted. Mood: "Ok, I guess." Patient denied acute symptoms of depression. Reported moderate anxiety. She denied feeling hopeless, worthless, or guilty. Reported feeling helpless over current symptoms. Suicidal Ideation: Pt denied. Homicidal Ideation: Pt denied. Hallucinations: Pt denied AH at present. Reported intermittent AH leading up to ED presentation. Paranoid/Delusional Material: None overtly evident. Difficulties with thought organization: At times showed delayed TP. Insight: Fair Judgment: Limited Orientation: A&Ox3 Cognition: Grossly intact Memory Function: Grossly intact Estimate of intellectual functioning: above average Assets/Strengths Patient Identified Assets/Strengths: Supportive family and friends; wants to feel better. Impression/Plan Impression and Plan: Patient is a 46- year old female with a history of depression with psychotic features and hypothyroidism who presented to ED for disorganized thoughts, AH and intermittent suicidal thoughts. She presently denied SI, plans and intent. Denied AH. Thought process appeared delayed at times with ? thought blocking. Patient unable to identify any current psychosocial stressors possibly leading to present symptoms. Patient concerned that symptoms are related to thyroid function, given prior history of this. Will monitor patient on unit for safety, mood, suicidal ideation and psychosis. Reviewed the risk/benefit/SE profiles of Zyprexa with the patient, including irreverisble movement disorders, metabolic syndrome, weight gain, diabetes, HTN, and HLD. Patient verbalized understanding of med education and currently agreeable to continuing for now to target disorganzied thoughts. - Include all active medical diagnosis that require tx DSM 5 Diagnosis(es): MDD, recurrent, severe with psychotic features R/O contribution of thyroid dysfunction to psychotic symptoms. - Initial Tx Plan for Active Psych & Medical Conditions Treatment Plan: 1. Monitor the patient on unit for safety, mood, suicidal ideation, and psychosis. 2. Obtain collateral from family and [facility]. 3. Continue Zyprexa 5mg BID for disorganized thoughts/intermittent AH. 4. Endocrine consult ordered primarily for patient reassurance of thyroid fxn, and elevated Free T4. 5. Once symptoms clinically stabilize, refer to [facility] level of care. 6. H&P per tone cabinet assembler team. 7. Continue current Synthroid dose for now per tone cabinet assembler Dr. Mitchell. 8. Will order rpt TSH and Free T4 given elevated Free T4 on CPS admission. - Factors that would help patient function - in a less restrictive setting. Factors: Alleviation/stabilization of AH. Organized thoughts. Medication adherence Outpatient treatment adherence.
[2016-11-25 12:09] VITALS: BP 107/58
--- NOTE | 2016-11-25 12:49 | NUR ---
Dr. Mitchell met with pt for H&P and currently Dr. Bolanos is meeting with pt as well to discuss labs and POC, no further orders at this time.
--- NOTE | 2016-11-25 13:10 | History & Physical ---
General Information and HPI History of Present Illness: This young female came in for hearing voices and was admitted for psychosis and psychiatric management she reports that from physical standpoint she has been doing fairly well without any specific new problems and has been taking her medication that includes Synthroid as well as clonidine and methadone given to her by [facility] in [place]. She reports that the thyroid medicine was started by manager scheduling about 6 months ago Her past history is significant for back surgery and chronic pain management and she claims she was on oxycodone for 15 years or so and the [facility] started her on methadone for withdrawal from OxyContin. She denies any other recent problems. She has been a smoker of cigarettes for most of her life and at least 25 years. She claims that she stopped smoking cigarettes last year and is using the vapor with electronic cigarettes. Allergies/Medications Allergies: Coded Allergies: NO KNOWN ALLERGIES (11/23/16) Home Med list Albuterol Sulfate (Proair Hfa) 90 MCG HFA.AER.AD 2 PUF INH PRN ASTHMA ( Reported) Clonidine HCl 0.1 MG TABLET 1 TAB PO BID ANXIETY (Reported) Levothyroxine Sodium 88 MCG TABLET 1 TAB PO DAILY THYROID (Reported) Methadone HCl 5 MG/5 ML SOLUTION 37 MG PO DAILY MENTAL HEALTH (Reported) Past History Travel History Traveled to [place] past 21 day No Medical History Neurological: NONE EENT: NONE Cardiovascular: NONE Respiratory: NONE Gastrointestinal: NONE Hepatic: NONE Renal: NONE Musculoskeletal: disk herniation Psychiatric: anxiety, chronic pain disorder, opioid dependence (methadone for pain management) Endocrine: NONE Blood Disorders: anemia Cancer(s): NONE 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 Denies: fever, malaise, weakness. EENTM: Denies: no symptoms. Cardiovascular: Denies: no symptoms. Respiratory: Denies: no symptoms. GI: Denies: no symptoms. Genitourinary: Denies: no symptoms. Musculoskeletal: Reports: see HPI, back pain, joint pain. Skin: Denies: no symptoms. Neurological/Psychological: Reports: see HPI, anxiety, depressed, emotional problems. Hematologic/Endocrine: Denies: no symptoms. Immunologic/Allergic: Denies: no symptoms. All Other Systems: Reviewed and Negative Exam & Diagnostic Data Last 24 Hrs of Vital Signs/I&O Vital Signs Date Time Temp Pulse Resp B/P Pulse O2 O2 Flow FiO2 Ox Delivery Rate 03 1209 79 107/58 11/25 0819 98.1 80 18 128/78 11/25 0751 98.1 80 128/78 11/24 2206 98.7 89 18 110/88 11/24 1940 98.7 89 110/88 11/24 1542 99.1 92 119/80 03 1317 98.9 91 18 137/81 99 Room Air Physical Exam General Appearance Alert, Oriented X3, Cooperative, No Acute Distress Skin No Rashes, No Breakdown, No Significant Lesion HEENT Atraumatic, PERRLA, EOMI, Mucous Membr. moist/pink Neck Supple, No JVD, No thryomegaly, +2 Carotid Pulse wo Bruit Lymphatic Cervical nl Cardiovascular Regular Rate, Normal S1, Normal S2, No Murmurs, Gallops, Rubs Lungs Clear to Auscultation, Normal Air Movement Abdomen Soft, No Tenderness, No Hepatospenomegaly, No Masses Neurological Exam Findings: Normal Gait, Normal Speech, Strength at 5/5 X4 Ext, Normal Tone, Cranial Nerves 3-12 NL, Reflexes 2+ Cranial Nerves II through XII: And within normal limits Extremities No Clubbing, No Cyanosis, No Edema, No Tenderness/Swelling Assessment/Plan Assessment: And this young female is admitted with hallucinations and hearing voices and psychosis. She has a history of chronic pain and has been on methadone from [facility] in [place] as well as clonidine for her OxyContin withdrawal. From medical standpoint she has hypothyroidism which seems fairly stable since her TSH is normal although her free T4 is on the high side. For now we will keep her on the same dose of levothyroxine 88 g until the next thyroid functions are done and then if TSH is low then we can decrease the dose of levothyroxine to 75 otherwise continue the same dose for now. The rest of her blood work including liver functions electrolytes and CBC are normal and she does not require any other workup or treatment from medical standpoint. As Ranked By This Provider Problem List: 1. Chronic back pain 2. Anxiety 3. Depression Qualifiers Depression Type: unspecified Qualified Code: F32.9 - Major depressive disorder, single episode, unspecified Miscellaneous Miscellaneous Documentation Attending Case Discussed With: MARIA A JACKSON MD Primary Care Physician: PATIENT HAS NO PRIMARY CARE DR Patient sees these Specialists none Level of Patient Care: IDANIA Acevedo Attending MD Review Statement Attending Statement Attending MD Statement: examined this patient, reviewed EMR data (avail), discussed with nursing Attending Assessment/Plan: This young female is admitted for increasing anxiety and depression and hallucinations. She has long-standing narcotic abuse and is on methadone and clonidine for withdrawal. She also has hypothyroidism since last year and is on replacement. For now we will continue the same dose until the next thyroid functions are done and if the TSH is low then we can consider decreasing the dose otherwise continue the 88 g per day for now. Is no need for any other workup or treatment.
--- NOTE | 2016-11-25 13:53 | NUR ---
PT VISIBLE IN THE [facility] TODAY. SHE CAME TO SOME GROUPS TODAY AND PARTICIPATED IN THEM. PT KEEPS TO HERSELF MOST OF THE TIME, AND HAS MINIMAL INTERACTIONS WITH PEERS. SHE HAS THOUGH BEEN COOPERATIVE FOR THE MOST PART, AND SEEMS TO BE ADJUSTING WELL TO THE [facility].
--- NOTE | 2016-11-25 13:57 | NUR ---
ADDENDUM: PT DENIES THOUGHTS TO HURT HERSELF WHEN ASKED.
--- NOTE | 2016-11-25 14:05 | SOCIAL WORKER TX PLAN PSYCH ---
Treatment Plan - Please Document: - Evidence that there is ongoing collaboration between - the patient and the interdisciplinary team, - including the patient's active participation and - responsibility for engaging in the treatment regimen, - and that the treatment plan is individualized and - relevant to the patient's conditions. - Treatment plan should reflect documentation indicating - that all active therapeutic efforts are included. Strengths/Capabilities: Patient seeking help and responsible for own mental health Physical Limitations (Interventions): Patient reports chronic back pain. Patient Identified Trmt Goals: " I want to feel normal again." Discharge Plan: IOP Problem/Goals #1 Problem #1: auditory hallucinations Goal (Short Term): Increase good judgment, stable mood, and goal directed behavior. Accomplish controlled behavior, moderated mood, and thought process through psychotherapy and medication. Goal (Long-Term): Explore feelings and thoughts about self, his or her own abilities, and future plans. Explore mood state, level of energy, level of control over thoughts, and sleeping pattern. Monitor taking of psychotropic medications as directed. Interventions: Allow for structure to focus the patient's thoughts and actions, and, by regulating the direction of conversation and setting plans for behavior. Reinforce slower speech and more careful focused thought process. Modalities: Encourage groups, provide CBT treatment, family meeting. 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 Current GAF: 25 Treatment Team - Responsibilities of members of the treatment team include: - Medication Management- MD or MAINTENANCE SUPERVISOR ELECTRICAL - Medication Administration and Monitoring- Nurse - Group Therapy- Occupational Therapist - 1:1 Therapy,Disch Planning,family involvement-Candy Decorator
--- NOTE | 2016-11-25 14:17 | SOCIAL WORKER PROG NOTE PSYCH ---
Social Work Progress Note Progress Note SW met with patient for the first time today. Patient presented with normal mood and somewhat constricted affect. Patient reported that she started experiencing auditory hallucinations this past weekend and was unable to control them on her own. Patient reports that last time she was hospitalized at [facility] she was not treated with psychotropic medications and the AH symptoms resolved after being treated for her thyroid. Patient is hesitant about psychtropic medications but has agreed to try Zyprexa while in the hospital. Patient has agreed that if she feels Zyprexa is benefiting her then she will continue it outpatient and Dr. Eason at [facility] will be her prescriber. I spoke with patients sister, Roxanna, who has agreed to come in for a family meeting tomorrow afternoon. She wishes to bring her mother to the meeting as well and is going to run this by patient beforehand. I left voicemail for patients son, Harinder, as well and extended the invite to him as well.
[2016-11-25 15:53] VITALS: BP 118/64
[2016-11-25 16:09] VITALS: BP 118/64
--- NOTE | 2016-11-25 19:08 | Cons- Endocrinology ---
General Information and HPI Consulting Request Date of Consult: 11/25/16 Requested By: Dr Dawkins Reason for Consult: Abnormal thyroid tests Source of Information: patient, old records Exam Limitations: poor historian History of Present Illness: This 46-year-old woman has a known history of hypothyroidism and thyroid nodules. She has been treated with levothyroxine 88 g daily. She is followed by Dr. wheeler in the office. She has positive thyroid antibodies consistent with Wellington's thyroiditis. The patient's thyroid ultrasound reveals to nodules in the right lobe which did not have any suspicious characteristics. The patient is admitted with depression and feeling overwhelmed. She apparently missed work for the past few days. She was confused. She was hearing voices and was wondering whether or not her thyroid was off and that caused these symptoms. The patient is on methadone and clonidine for withdrawal from narcotic drugs. Allergies/Medications Allergies: Coded Allergies: NO KNOWN ALLERGIES (11/23/16) Home Med List: Albuterol Sulfate (Proair Hfa) 90 MCG HFA.AER.AD 2 PUF INH PRN ASTHMA ( Reported) Clonidine HCl 0.1 MG TABLET 1 TAB PO BID ANXIETY (Reported) Levothyroxine Sodium 88 MCG TABLET 1 TAB PO DAILY THYROID (Reported) Methadone HCl 5 MG/5 ML SOLUTION 37 MG PO DAILY MENTAL HEALTH (Reported) Current Medications: Current Medications Sig/Jacob Start time Last Medication Dose Route Stop Time Status Admin Acetaminophen 650 MG Q6P PRN 11/24 1215 AC PO Al Hydroxide/Mg 30 ML Q4-6 PRN PRN 11/24 1215 AC Hydroxide PO Albuterol Sulfate 2 PUF Q6P PRN 11/24 1215 AC INH Clonidine 0.1 MG BID 11/24 2200 AC 11/25 PO 0819 Gabapentin 300 MG Q6P PRN 11/24 1215 AC PO Levothyroxine Sodium 0.088 MG DAILY AC 11/25 0700 AC 11/25 PO 0702 Magnesium Hydroxide 30 ML AT BEDTIME PRN 11/24 1215 AC PO Melatonin 5 MG AT BEDTIME NEED.. 11/24 1215 AC PO Methadone HCl 5 MG .STK-MED ONE 11/25 0812 DC PO 11/25 0813 Methadone HCl 35 MG DAILY@0800 11/25 0800 AC 11/25 PO 0818 Multivitamins 1 TAB DAILY 11/24 1203 AC 11/25 PO 0819 Nicotine 14 MG DAILY 11/24 1203 11/25 [facility] 1234 Olanzapine 5 MG BID 11/24 1206 11/25 PO 0845 Review of Systems Review of Systems Constitutional: Denies: chills, fever. Cardiovascular: Denies: chest pain. Respiratory: Denies: short of breath. GI: Denies: abdominal pain, nausea, vomiting. Genitourinary: Denies: dysuria. Musculoskeletal: Denies: joint pain. Skin: Reports: rash. Neurological/Psychological: Reports: ataxia, confusion, depressed, emotional problems. 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 Surgical History Surgical History: non-contributory Psychosocial History ETOH Use: denies use Illicit Drug Use: denies illicit drug use Exam & Diagnostic Data Last 24 Hrs of Vital Signs/I&O Vital Signs Date Time Temp Pulse Resp B/P Pulse O2 O2 Flow FiO2 Ox Delivery Rate 03/ 1609 83 118/64 03/02 1553 83 118/64 03/02 1209 79 107/58 03/02 0819 98.1 80 18 128/78 03/02 0751 98.1 80 128/78 / 2206 98.7 89 18 110/88 / 1940 98.7 89 110/88 Vital Signs Date Time Temp Pulse Resp B/P Pulse O2 O2 Flow FiO2 Ox Delivery Rate 11/25 1609 83 118/64 03/02 1553 83 118/64 03/02 1209 79 107/58 03/02 0819 98.1 80 18 128/78 03/02 0751 98.1 80 128/78 / 2206 98.7 89 18 110/88 / 1940 98.7 89 110/88 Physical Exam General Appearance: well developed/nourished, alert, awake, anxious Head: normal appearance Eyes: Bilateral: normal appearance. Neck: thyromegaly (right lobe enlarged) Respiratory: normal breath sounds Cardiovascular: regular rate/rhythm Gastrointestinal: normal bowel sounds, soft Extremities: normal inspection Neurologic/Psych: awake, alert Reflexes: 2+: bicep (R), bicep (L). Skin: intact Assessment/Plan Assessment/Plan This 46-year-old woman has a known history of Wellington's thyroiditis and hypothyroidism. She also has known thyroid nodules. She is admitted with depression and confusion as well as hearing voices. The patient's TSH is normal but her free T4 is mildly elevated. The normal TSH is reassuring and most likely the patient is euthyroid. The free T4 may be elevated due to other interfering substances or acute illness. There is also a syndrome of elevated T4 concentrations found in some acutely psychotic patients. This is termed as transient hyperthyroxinemia because it usually resolves upon recovery from the psychotic episode. I would repeat the patient's thyroid function tests tomorrow to see if there is a trend. I do not feel that the abnormal thyroid function tests are contributing to her emotional problem at this time. Consult Acknowledgment - Thank you for your consult request.
[2016-11-25 19:44] VITALS: BP 126/72
--- NOTE | 2016-11-25 21:05 | NUR ---
PT IS COOPERATIVE WITH STAFF AND PEERS, AND COMPLIANT WITH UNIT RULES. PT IS OFTEN IN MILIEU, INTERACTING WELL WITH OTHERS, SOMETIMES APPEARING WITHDRAWN PT PACES THE UNIT AND SEEMS DEEP IN THOUGHT. MOOD IS STABLE, AFFECT IS EUTHYMIC TO FULL RANGE, COMMUNICATION IS NORMAL, AND APPETITE IS NORMAL. PT DENIES SI AT THIS TIME.
[2016-11-26 07:47] VITALS: BP 138/91
--- NOTE | 2016-11-26 11:49 | CP SOUTH PROGRESS NOTE PSYCH ---
Psych (Inpt) Progress Note Progress Note Include the following elements, when applicable: Involvement in the active treatment of the patient with behavioral observations of the patient and the patient's response to the treatment. Review of the ongoing treatment process in the context of the treatment plan. Indication of how multi-disciplinary staff members are carrying out the treatment plan. Plans for future interventions and recommendations for revision of the treatment plan. Liaison with other physicians/providers. Progress Note: [I discussed this patient's progress to date, current mental status, treatment process in the context of the treatment plan, and discharge planning with staff/ team in the daily morning inpatient team meeting. I also met with the patient myself in individual session.] SUBJECTIVE: "I feel clearer today." OBJECTIVE: Current Medications Sig/Jacob Start time Last Medication Dose Route Stop Time Status Admin Acetaminophen 650 MG Q6P PRN 11/24 1215 AC PO Al Hydroxide/Mg 30 ML Q4-6 PRN PRN 11/24 1215 AC Hydroxide PO Albuterol Sulfate 2 PUF Q6P PRN 11/24 1215 AC INH Clonidine 0.05 MG 0800 / 0800 UNVr PO 11/28 0801 Clonidine 0.05 MG 0800,2200 11/27 0800 UNVr PO 11/27 2201 Clonidine 0.1 MG BID 11/24 2200 r 11/26 PO 11/26 2200 0814 Gabapentin 300 MG Q6P PRN 11/24 1215 AC PO Levothyroxine Sodium 0.088 MG DAILY AC 11/25 0700 AC 11/26 PO 0543 Magnesium Hydroxide 30 ML AT BEDTIME PRN 11/24 1215 AC PO Melatonin 5 MG AT BEDTIME NEED.. 11/24 1215 AC PO Methadone HCl 35 MG DAILY@0800 11/25 0800 AC 11/26 PO 0816 Multivitamins 1 TAB DAILY 11/24 1203 AC 11/26 PO 0814 Nicotine 14 MG DAILY 11/24 1203 AC 11/26 TOP 0814 Olanzapine 5 MG BID 11/24 1206 AC 11/26 PO 0814 Vital Signs Date Time Temp Pulse Resp B/P Pulse O2 O2 Flow FiO2 Ox Delivery Rate 11/26 0814 98.2 80 18 138/91 11/26 0747 98.2 80 138/91 11/25 2119 98.0 80 18 126/72 11/25 1944 98.0 80 126/72 11/25 1609 83 118/64 11/25 1553 83 118/64 11/25 1209 79 107/58 Lab Free T4 2.02 ng/dL H 11/23/161910 Free T4 1.50 ng/dL 11/26/16 0545 TSH 1.750 uIU/mL 11/23/161910 TSH 5.500 uIU/mL H 11/26/16 0545 Thyroxine Binding Indx 36.2 % UPTAKE 11/23/161910 Total T3 1.47 ng/mL 11/26/16 0545 ASSESSMENT: Chart, progress notes, VS, labs and medication list were reviewed. Rpt free T4 and total T3 resulted wnl. Rpt TSH 5.500 from 1.750 (on 11/23/16). Reviewed lab results with patient. Met with patient today in her room where she was observed resting. On encounter, she sat up in bed and was easily engagable in conversation. Speech was moderate in rate, tone and volume. eye contact was good. Mood was "better." Affect was gamez in range than yesterday. She denied acute symptoms of anxiety and depression. Patient reported sleeping well last night. She reported she felt that the stress of trying to advance in her job and recent drop in methadone (1 week ago) from 45mg daily to 37mg daily contributed to her lack of sleep, and the possible recurrence of AH and "scattered thoughts." Patient was unable to identify any other psychosocial stressors. She denied auditory and visual hallucinations. Reported thoughts were "clearer" today, thought process appeared more fluid. No evidence of thought blocking, paranoia or delusions. She denied active and passive suicidal ideation, plans and intent. She denied homicidal ideation. Patient reported tolerating Zyprexa well and denied untoward effects. No evidence of movement disorder. Patient requesting to discontinue Clonidine for anxiety as she does not want to be on "too many medications". Will taper patient off. AIMS=0. Pt was agreeable to continue taking. Please see Amanda Peter SALES SERVICE REP's note for information regarding family meeting today. PLAN: 1. Continue current medications. 2. Taper Clonidine off over weekend. 3. Endocrine to continue following thyroid management. 4. Continue monitoring patient on unit for safety, mood and psychosis. 5. Dispo planning per primary team.
[2016-11-26 12:28] VITALS: BP 94/60
--- NOTE | 2016-11-26 14:09 | NUR ---
PT IS COMPLIANT AND COOPERATIVE. MOOD IS STABLE WITH A CONSTRICTED AFFECT. PT DENIES SI AT THIS TIME, NO COMPLAINTS OFFERED. PT APPEARS TO HAVE A CLEAR THOUGHT CONTENT- NO PARANOIA NOTED. PT IS PRESENT IN THE COMMUNITY AND INTERACTING WELL WITH PEERS AND STAFF. PT IS ATTENDING GROUPS. VITALS ARE STABLE, APPETITE IS GOOD.
[2016-11-26 16:15] VITALS: BP 139/73
--- NOTE | 2016-11-26 16:24 | SOCIAL WORKER PROG NOTE PSYCH ---
Social Work Progress Note Progress Note Patient had family meeting today with this service writer advisor, Joanna Gilmore APRN, and patients sister Roxanna and mother. Patients family appear to be positive support for patient and had many questions regarding her current treatment and plan for discharge. Patients family discussed patients previous admission to the hospital and being treated primarily for her thyroid vs this treatment and being treated primarily for a psychiatric condition. We explained to the family that the underlying cause is still unclear at this time for patients current symptoms , but the thyroid being the main cause has been ruled out that at this time. Family understood and patient was initially resistent to hearing this information but eventually was in agreement with recognizing the psychiatric presence that is occurring. Patient has agreed to continue on psychotropic medications at this time and has agreed to follow through with IOP at [facility].
[2016-11-26 19:33] VITALS: BP 116/77
--- NOTE | 2016-11-26 21:20 | NUR ---
PT IS CALM, COOPERATIVE WITH STAFF AND PEERS, AND COMPLIANT WITH UNIT RULES. PT IS AT TIMES ISOLATIVE AND WITHDRAWN, STAYING IN PT ROOM FOR PERIODS OF TIME. WHEN IN MILIEU PT INTERACTS WELL WITH OTHERS. MOOD IS STABLE, AFFECT IS SLIGHTLY FLAT/CONSTRICTED, COMMUNICATION IS NORMAL, AND APPETITE IS NORMAL. PT DENIES SI AT THIS TIME.
[2016-11-27 08:15] VITALS: BP 115/71
[2016-11-27 12:17] VITALS: BP 122/67
--- NOTE | 2016-11-27 13:06 | PN- Endocrinology ---
Assessment/Plan Assessment: This 46-year-old woman who was diagnosed with hypothyroidism with TSH of 16.1 in 05/2016. She was put on Levothyroxine 88 mcg daily. In 06/2016, repeat TSH was 2.22 and free T4 1.39. She also has known thyroid nodules. She was admitted with depression and confusion as well as hearing voices. On , her TSH was 1.75, free T4 was 2.02. Repeat TFT on 11/26/2016 showed TSH 5.5, free T4 1.5 and TT3 1.47. Currently she is on Levothyroxine 88 mcg daily. Plan: continue Levothyroxine 88 mcg daily for now; abnormal TFT ? due to sick euthyroid changes; repeat TSH and free T4 on 11/29/2016. As per patient, she probably will be discharged on 11/30/2016. Subjective Subjective: She has no special complaints. Objective Last 24 Hrs of Vital Signs/I&O Vital Signs Date Time Temp Pulse Resp B/P Pulse O2 O2 Flow FiO2 Ox Delivery Rate 11/27 1217 83 122/67 11/27 0859 81 115/71 11/27 0815 98.0 81 115/71 11/26 2134 72 116/77 11/26 1933 97.6 72 116/77 11/26 1615 74 139/73 Results Pertinent Lab/Epi Results: Laboratory Tests 11/26 11/26 0700 0545 Chemistry TSH (0.270 - 4.200 uIU/mL) 5.500 H Free T4 (0.64 - 1.79 ng/dL) Cancelled 1.50 Total T3 (0.97 - 1.69 ng/mL) 1.47
--- NOTE | 2016-11-27 14:08 | NUR ---
PT WAS VISIBLE IN THE MILIEU TODAY. SHE HAS BEEN ATTENDING GROUPS TODAY, AND INTERACTED WITH HER PEERS IN FOCUS GROUP ACTIVITY. OUTSIDE OF GROUP, PT HAS BEEN ISOLATIVE FROM HER PEERS AND SPENDS HER TIME IN THE LOUNGE NEAR THE FISH TANK A LOT. SHE HAS BEEN PLEASANT AND COOPERATIVE, DENIES THOUGHTS TO HURT HERSELF WHEN ASKED.
[2016-11-27 16:02] VITALS: BP 103/50
--- NOTE | 2016-11-27 18:03 | CP SOUTH PROGRESS NOTE PSYCH ---
Psych (Inpt) Progress Note Progress Note The patient was seen one-to-one and discussed with unit staff. We reviewed the previous inpatient records as well as present. The patient is being treated for major depressive disorder, recurrent, severe. On admission she presented with altered mental status, disorganized thinking, paranoid ideation. She is pleasant, cooperative. She is well groomed, average weight and height female. She does not have her eyebrows which might be related to the thyroid function abnormalities. The patient is stating she feels better, her thoughts are more organized, she doesn't feel as anxious and overwhelmed as she used to when she came in. She felt good that she saw Dr. Guidry to address the thyroid abnormalities. She addressed her concerns about being in the IOP and the schedule being in conflict with her work-related schedule. The patient's thoughts are coherent, goal directed, there is no delusional ideation present. The patient describes mood as better, anxiety is reduced, she rated depression as 0 on scale 0 to 10 zero being the worst, 10 being the best and anxiety as a five on the same scale. The patient denies suicidal/homicidal ideation, auditory /visual hallucinations, or side effects from medications. The patient expressed interest in the medication she's taking, she was stating she is unclear why she is on Zyprexa. We discussed about the rationale for prescribing the medication, R/B and about its potential side effect. The patient rememberes that she has been in the past on Zyprexa and gained 35 pounds. She stated that her thoughts were better the moment she reached unit. She believes her exacerbations were caused by the starting of clonidine which was done when the Patient Reduced Her Methadone Dose. Besides the Hyperthyroidism, Patient Has Chronic Back pain, this being the main reason she received painkillers, and became addicted to them, and currently is on methadone maintenance. The patient agreed to continue the medication as noted below, we will reduce Zyprexa to 2.5 mg twice a day and she will monitor her thinking process. She is benefiting from the interaction and tratment on the unit, is improving slowly, continues to need mood stabilization and monitoring in an inpatient setting.
[2016-11-27 19:28] VITALS: BP 107/59
--- NOTE | 2016-11-27 20:58 | NUR ---
PT IS STABLE WITH FULL RANGE OF AFFECT. PT APPEARS GUARDED BUT WILL ENGAGE WITH STAFF/PEERS. WITHDRAWN AND SLIGHTLY ISOLATIVE THIS EVENING SHIFT. PT HAS BEEN MINIMALLY VISIBLE WITHIN THE COMMUNITY AND INTERACTING INFREQUENTLY. PT HAS SPENT MOST OF EVENING SHIFT IN HER ROOM AWAKE IN BED. VISITED WITH HER SON AND GRANDDAUGHTER TODAY AND REPORTED "REALLY ENJOYING THEIR TIME". VS ARE STABLE AND DENIES ANY SI/HI TO THIS MHW.
--- NOTE | 2016-11-28 06:22 | NUR ---
PT APPEARED TO SLEEP WELL.
[2016-11-28 07:35] VITALS: BP 131/71
[2016-11-28 12:01] VITALS: BP 105/69
--- NOTE | 2016-11-28 13:54 | NUR ---
PT VISIBLE IN MILIEU MOST OF THE DAY. HER GOAL WAS TO LAUGH MORE, SINCE PT SAID THAT MAKES HER FEEL GOOD. IN THE MILIEU PT HAS BEEN ATTENDING GROUPS, AND SOCIALIZING WITH SOME OF HER PEERS. SHE HAS BEEN COOPERATIVE WITH STAFF DIRECTION, AND DENIES HAVING ANY THOUGHTS TO HURT HERSELF.
[2016-11-28 15:56] VITALS: BP 101/57
[2016-11-28 19:18] VITALS: BP 113/66
--- NOTE | 2016-11-28 19:20 | CP SOUTH PROGRESS NOTE PSYCH ---
Psych (Inpt) Progress Note Progress Note The patient was seen for follow-up for unspecified psychotic disorder. She was seen individually and discussed with unit staff. According to the unit staff, she slept well during the night time and she appeared less internally preoccupied. She was observed being out of her room and on the unit, even though she had minimal interaction with peers. The patient is calm, pleasant and cooperative. She appears to be in much better spirits than yesterday. Visit with Dr. Guidry gave her hope that her thyroid problem will be resolved, therefore her psychiatric symptoms will recede. The patient denies suicidal/homicidal ideation, auditory/visual hallucinations, or side effects from the medications. The patient reports better sleep and reduce in tensity/frequency of auditory hallucinations with the Zyprexa 5 mg twice a day. She was nevertheless complaining about feeling tired and over sedated. The patient admits that the medication is helpful for her mood and voices but does not like the side effects she experiences. We agreed to reduce Zyprexa 2.5 mg twice a day in order to reduce the side effects. Dr. Guidry ordered a repeated thyroid function level for November. We will continue present management, observation, symptom monitoring, and discharge planning. The patient will be followed up daily by the unit psychiatrist.
--- NOTE | 2016-11-28 21:22 | NUR ---
PATIENT ALERT AND ORIENTED X3, CALM, COOPERATIVE WITH STAFF; PATIENT SPENT MORE TIME IN MILEU TODAY, STILL SOMEWHAT QUIET BUT WAS MORE EXPRESSIVE; SHE DENIES CURRENT SUIDICAL IDEATION AND INTENT; PATIENT MOOD SEEMS IMPROVED, BUT STILL SLIGHTLY DEPRESSED AND PREOCCUPIED; SHE ATTENDED GROUPS WITH GOOD PARTICIPATION.
--- NOTE | 2016-11-29 05:55 | NUR ---
PATIENT WAS AWAKE IN BED X1, OTHERWISE APPEARED TO SLEEP.
[2016-11-29 07:46] VITALS: BP 125/94
--- NOTE | 2016-11-29 10:41 | CP SOUTH PROGRESS NOTE PSYCH ---
Psych (Inpt) Progress Note Progress Note Include the following elements, when applicable: Involvement in the active treatment of the patient with behavioral observations of the patient and the patient's response to the treatment. Review of the ongoing treatment process in the context of the treatment plan. Indication of how multi-disciplinary staff members are carrying out the treatment plan. Plans for future interventions and recommendations for revision of the treatment plan. Liaison with other physicians/providers. Progress Note: [I discussed this patient's progress to date, current mental status, treatment process in the context of the treatment plan, and discharge planning with staff/ team in the daily morning inpatient team meeting. I also met with the patient myself in individual session.] SUBJECTIVE: "I feel much better!" OBJECTIVE: Current Medications Sig/Jacob Start time Last Medication Dose Route Stop Time Status Admin Acetaminophen 650 MG Q6P PRN 11/24 1215 AC PO Al Hydroxide/Mg 30 ML Q4-6 PRN PRN 11/24 1215 AC Hydroxide PO Albuterol Sulfate 2 PUF Q6P PRN 11/24 1215 AC INH Gabapentin 300 MG Q6P PRN 11/24 1215 AC PO Levothyroxine Sodium 0.088 MG DAILY AC 11/25 0700 AC 11/29 PO 0615 Magnesium Hydroxide 30 ML AT BEDTIME PRN 11/24 1215 AC PO Melatonin 5 MG AT BEDTIME NEED.. 11/24 1215 AC PO Methadone HCl 35 MG DAILY@0800 11/25 0800 AC 11/29 PO 0749 Multivitamins 1 TAB DAILY 11/24 1203 AC 11/29 PO 0749 Nicotine 14 MG DAILY 11/24 1203 AC 11/29 TOP 0749 Olanzapine 2.5 MG BID 11/28 2200 AC 11/29 PO 0749 Olanzapine 5 MG BID 11/24 1206 DC 11/28 PO 0753 Vital Signs Date Time Temp Pulse Resp B/P Pulse O2 O2 Flow FiO2 Ox Delivery Rate 11/29 0746 98.2 85 125/94 11/28 1918 97.1 77 113/66 11/28 1556 73 101/57 11/28 1201 78 105/69 Laboratory Tests 11/29 0613 Chemistry TSH (0.270 - 4.200 uIU/mL) 1.590 Free T4 (0.64 - 1.79 ng/dL) 1.23 ASSESSMENT: Chart, progress notes, VS, labs, and medication list reviewed. Rpt TSH and Free T4 from this morning resulted wnl. Over the weekend Zyprexa was decreased from 5mg BID to 2.5mg BID due to pt's report of feeling sedated on former dose. Per progress notes, patient appeared to tolerate discontinuation of Clonidine well. Met with patient today, who presented alert and oriented to person, place, time and situation. Speech was normal in rate, tone and volume. Eye contact was appropriate. She had no complaints. She reported having a good weekend and had visits with her son, sister and two granddaughters. She reported feeling grateful for her family, and their support. Patient reported sleeping well, and having a good appetite. She denied sedation on lowered dose of Zyprexa 2.5mg BID. She reported her mood was "much better!" Affect was gamez in range today than on previous encounters. She denied passive and suicidal ideation, plans and intent. She denied homicidal ideation. She denied auditory and visual hallucinations, and reported her thoughts and memory were clearer. There was no evidence of symptoms of hank/hypomania. She was observed today attending milieu groups. She reported tolerating decrease in Zyprexa from 5mg BID to 2.5mg BID well and denied untoward medication effects. Continued to mention concerns about potential for weight gain on Zyprexa, and discussed with her the importance of a healthy diet and exercise. Patient expressed motivation to continue walking post-discharge and purchasing a gym membership. Thought process was organized and goal-directed. Thought content was appropriate. There was no evidence of paranoia or delusions. Cognition was grossly intact. Patient denied untoward medication effects and was agreeable to continue taking them. She was also agreeable to following up at [facility] for outpatient treatment post-discharge. PLAN: 1. Continue current medications. 2. Continue monitoring patient on unit for safety, suicidal ideation, mood and psychosis. 3. Discharge tomorrow morning with f/u at [facility].
[2016-11-29 12:26] VITALS: BP 125/70
--- NOTE | 2016-11-29 13:58 | NUR ---
PT IS COMPLIANT AND COOPERATIVE. MOOD IS STABLE WITH A FULL RANGE OF AFFECT. PT DENIES SI AT THIS TIME, NO COMPLAINTS OFFERED. PT IS PRESENT IN THE COMMUNITY AND INTERACTING WITH PEERS AND STAFF. PT IS ATTENDING GROUPS. VITALS ARE STABLE, APPETITE IS GOOD.
--- NOTE | 2016-11-29 15:19 | SOCIAL WORKER PROG NOTE PSYCH ---
Social Work Progress Note Progress Note Patient presents with bright mood and affect congruent to mood today. Patient reports having a good weekend with visits from multiple members of her family throughout the weekend. Patient denies any SI/HI/AH/VH at present. She reports feeling better now that her medication has been reduced. She reports she was feeling sedated over the weekend and is able to think clearer and stay awake throughout the day easier today. Patient is looking forward to discharge and returning to work. She plans to attend treatment at [facility] [place]. I spoke with [facility] and they reported that they have an open schedule model so if patient shows up she will most likely be able to see her counselor and prescriber the same day. Patient is aware of this and plans to do this tomorrow upon discharge from the hospital.
[2016-11-29 19:45] VITALS: BP 123/73
--- NOTE | 2016-11-29 20:54 | NUR ---
PT IS COOPERTATIVE WITH STAFF AND PEERS, AND COMPLAINT WITH UNIT RULES. PT APPEARS SLIGHTLY ANXIOUS, OFTEN PACING THE UNIT, SLIGHTLY ISOLATIVE AND WITHDRAWN, NOT INTERACTING MUCH WITH OTHERS. PT WILL INTERACT IF DIRECTLY ENGAGED. MOOD IS STABLE, AFFECT IS SLIGHTLY CONSTRICTED TO EUTHYMIC, COMMUNICATION IS NORMAL, AND APPETITE IS NORMAL. PT DENIES SI AT THIS TIME.
[2016-11-30 07:34] VITALS: BP 133/74
--- NOTE | 2016-11-30 08:15 | NUR ---
PT IS SCHEDULED FOR D/C TODAY TO [facility]. SHE REPORTS HER THOUGHTS ARE CLEAR AND SHE DENIES ANY THOUGHTS OF SUICIDE OR SELF HARM. SHE AGREES TO FOLLOW UP WITH [facility] [place]. SHE VERBALIZES A GOOD UNDERSTANDIMG OF HER MED REGIME AND TREATMENT PLAN. SHE IS GIVEN EDUCATION R/T MANAGING SCHIZOAFFECTIVE D/O AND DEPRESSION AND ON PREVENTING SUICIDE
[2016-11-30] MEDS ORDERED: NICOTINE PATCH1 EAC2 TOP (08:22)
[2016-11-30] MEDS ORDERED: OLANZAPINE2.5 M1 PO (08:23)
[2016-11-30] MEDS ORDERED: ONE DAILY MULT1 EAC2 PO (08:24)
[2016-11-30] MEDS ORDERED: LEVOTHYROXINE88 MCG PO (08:25)
--- NOTE | 2016-11-30 08:49 | CP SOUTH PROGRESS NOTE PSYCH ---
Psych (Inpt) Progress Note Progress Note Include the following elements, when applicable: Involvement in the active treatment of the patient with behavioral observations of the patient and the patient's response to the treatment. Review of the ongoing treatment process in the context of the treatment plan. Indication of how multi-disciplinary staff members are carrying out the treatment plan. Plans for future interventions and recommendations for revision of the treatment plan. Liaison with other physicians/providers. Progress Note: [I discussed this patient's progress to date, current mental status, treatment process in the context of the treatment plan, and discharge planning with staff/ team in the daily morning inpatient team meeting. I also met with the patient myself in individual session.] S: "My thoughts are clear." O: Current Medications Sig/Jacob Start time Last Medication Dose Route Stop Time Status Admin Acetaminophen 650 MG Q6P PRN 11/24 1215 AC PO Al Hydroxide/Mg 30 ML Q4-6 PRN PRN 11/24 1215 AC Hydroxide PO Albuterol Sulfate 2 PUF Q6P PRN 11/24 1215 AC INH Gabapentin 300 MG Q6P PRN 11/24 1215 AC PO Levothyroxine Sodium 0.088 MG DAILY AC 11/25 0700 AC 11/30 PO 0611 Magnesium Hydroxide 30 ML AT BEDTIME PRN 11/24 1215 AC PO Melatonin 5 MG AT BEDTIME NEED.. 11/24 1215 AC PO Methadone HCl 35 MG DAILY@0800 11/25 0800 AC 11/30 PO 0757 Multivitamins 1 TAB DAILY 11/24 1203 AC 11/30 PO 0757 Nicotine 14 MG DAILY 11/24 1203 AC 11/30 TOP 0758 Olanzapine 2.5 MG BID 11/28 2200 AC 11/30 PO 0757 Vital Signs Date Time Temp Pulse Resp B/P Pulse O2 O2 Flow FiO2 Ox Delivery Rate 11/30 0734 96.4 86 133/74 11/29 1945 97.6 89 123/73 11/29 1226 79 125/70 A: Chart, progress notes, VS, labs and medication list were reviewed. Met with the patient today, on the date of discharge. She presented alert and oriented to person, place, time and situation. Speech was normal in rate, tone and volume. Eye contact was appropriate. Affect was calm and gamez in range. Mood was "good." She had no complaints. She reported sleep and appetite were good. She reported depression of 0/10 (10 being the worst) and anxiety of 2/10 ( 10 being the worst). She denied feeling hopeless, helpless, worthless, and guilty. She denied passive and active suicidal ideation, plans and intent. She denied homicidal ideation. She stated and also believed she will not harm herself or others. She identified protective factors of "my son," "my grandaughters," "my sister and mother." She denied auditory and visual hallucinations. Thought process was organized and goal-directed. Thought content was appropriate. There was no evidence of paranoia or chema delusions. She reported her thoughts and memory were much clearer. She denied racing thoughts. Cognition was grossly intact. she reported tolerating medications well and denied untoward medication effects. She was future oriented to follow up with [facility] for continued methadone maintenance and IOP treatment today. She verbalized having an existing endocrinology appointment scheduled with Dr. Guidry outpatient, and verbalized she will follow up with appointment for thyroid management. Patient reported feeling safe and ready for discharge. P: 1. Discharge today to home and self care. 2. F/u with [facility] this morning, 11/30/16. 3. F/u with outpatient endocrinology appointment with Dr. Guidry. 4. Discharge prescriptions were called into [facility] in [place], [place]. Patient verbalized understanding. 5. F/u with [facility] on 12/01/16 at 4PM. 6. In the event of an emergency, call 911/go to nearest emergency department. Patient verbalized understanding of instruction.
--- NOTE | 2016-11-30 08:50 | DISCHARGE SUMMARY REPORT-PSYCH ---
Visit Information Visit Dates/Diagnosis' Admission Date: 11/24/16 Discharge Date: 11/30/16 Reason for Admission: Psychosis and passive suicidal ideation. Psy Discharge Primary Diag: MDD, recurrent, severe with psychotic features. Psy Discharge Secondary Diag: Opiate use disorder in full sustained remission ( on methadone maintenance ); chronic pain; disc herniation; hypothyroidism. Hospital Course Significant Lab Findings: Lab Free T4 2.02 ng/dL H 11/23/161910 Free T4 1.50 ng/dL 11/26/16 0545 Free T4 1.23 ng/dL 11/29/16 0613 TSH 1.750 uIU/mL 11/23/161910 TSH 5.500 uIU/mL H 11/26/16 0545 TSH 1.590 uIU/mL 11/29/16 06 Thyroxine Binding Indx 36.2 % UPTAKE 11/23/161910 Total T3 1.47 ng/mL 11/26/16 0545 Urine Test NEGATIVE 11/24/16 0741 Course Complications: None. Consultations: The patient was seen for admission history and physical by utility arborist Dr. Meño Mitchell. Please see his note for additional information. The patient was additionally consulted by endocrinologists Dr. Carmine Bolanos and Dr. Avani Guidry for abnormal TFTs. Per Dr. Carmine Bolanos, symptoms of psychosis were not likely related to thyroid function. Per Dr. Avani Guidry, abnormal TFTs were likely related to sick euthyroid changes. Patient's home dose of Synthroid was continued at 88mcg per Dr. Carmine Bolanos and Dr. Avani Guidry. Patient will follow-up with existing outpatient appointment with Dr. Avani Guidry, her established rail transportation tabeler. Allergies: Coded Allergies: NO KNOWN ALLERGIES (11/23/16) Hospital Course/TX Response: The patient was monitored on the unit for safety, suicidal ideation, auditory hallucinations and disorganized thoughts. She participated in multimodal treatments on the unit. On initial hospitalization, the patient felt strongly that her thyroid function was related to changes in thought process and auditory hallucinations. An endocrinology consult was ordered and completed to rule out underlying medical causes for patient's presentation. Please see results of endocrinology consult in above consultation section. The patient was started on Zyprexa 5mg twice daily for disorganized thoughts and auditory hallucinations, which was gradually decreased to 2.5mg twice daily during the hospital course due to complaints of day time tiredness. The patient's outpatient Clonidine 0.1mg twice daily for anxiety was gradually tapered off and discontinued. Her outpatient methadone 37mg daily was restarted in the hospital at 35mg daily due to inpatient pharmacy recommendation, which patient consented to. The patient's Synthroid was maintained at 88mcg every morning before breakfast per Dr. Bolanos and Dr. Guidry's recommendations. The patient tolerated all medications well and denied untoward medication effects. During the hospital course, the patient's mood and affect improved. Suicidal ideation and auditory hallucinations remitted. Thought process cleared. A family meeting was held with the patient, her mother and sister, Amanda PeterJIMENEZ, this senior underwriter, and the patient's son (via phone conference). The patient's treatment progress, endocrine function, medication regimen, psychiatric symptoms , level of safety and discharge planning were reviewed and discussed at length. The patient and her family were agreeable to the patient following up with after care treatment at [facility] in [place], [place] where she would also resume methadone maintenance, and follow-up thyroid management with outpatient rail transportation tabeler Dr. Avani Guidry. The patient and her family were in favor of discharge plan. On the date of discharge, the patient presented alert and oriented to person, place, time and situation. Speech was normal in rate, tone and volume. Eye contact was appropriate. Affect was calm and gamez in range. Mood was "good." She had no complaints. She reported sleep and appetite were good. She reported depression of 0/10 (10 being the worst) and anxiety of 2/10 (10 being the worst) . She denied feeling hopeless, helpless, worthless, and guilty. She denied passive and active suicidal ideation, plans and intent. She denied homicidal ideation. She stated and also believed she will not harm herself or others. She identified protective factors of "my son," "my grandaughters," "my sister and mother." She denied auditory and visual hallucinations. Thought process was organized and goal-directed. Thought content was appropriate. There was no evidence of paranoia or chema delusions. She reported her thoughts and memory were much clearer. She denied racing thoughts. Cognition was grossly intact. She reported tolerating all medications well and denied untoward medication effects. She was future oriented to follow up with [facility] for continued methadone maintenance and IOP treatment. She verbalized having an existing endocrinology appointment scheduled with Dr. Avani Guidry outpatient, and verbalized she will follow up with appointment for thyroid management. Patient reported feeling safe and ready for discharge. Discharge HBIPS - Tobacco Use Treatment Offered Post DC Medications Offered: Script Given-See Med List Post DC Tobacco Treatment Plan: [facility] Program Appt Date: 12/01/16 Program Appt Time: 1600 - EtOH/Drug Use D/O Treatment Offered Post DC Medications Offered: Med Not Indicated for D/O Post DC EtOH/SubAbuse TX Plan: Other SubAbuse/Dual Pgm Program Appt Date: 11/30/16 Metabolic Screening - Screen if on a Neuroleptic Medication - Metabolic screening should include: - Blood Pressure, BMI, Glucose or Hgb A1c, & a - Lipid profile from within the past 365 days. Metabolic Screening () Not Applicable, patient not on a neuroleptic. OR ([X]) Patient on a neuroleptic(s) . Enter below results for Glucose or Hemoglobin A1C, and lipid panel if obtained during the last 365 days. BMI: 26.700 Blood Pressure: 133/74 Laboratory Results (If applicable): Lab Cholesterol 225 MG/DL H 06/10/16 0640 Cholesterol/HDL Ratio 4 % 06/10/16 0640 HDL Cholesterol 59 mg/dL 06/10/16 0640 Hemoglobin A1c 5.5 % 06/10/16 0640 LDL Cholesterol, Calc 139 mg/dL H 06/10/16 0640 Triglycerides 139 mg/dL 06/10/16 0640 Glucose 102 mg/dL H 11/23/16 1911 Discharge Instructions General Discharge Information Discharge Medications: Discharge Medications- (Dose, route, freq, indication): START taking these NEW Home Medications: Nicotine (Nicotine Dose: On the skin, DAILY for Qty: 14 Called-in Patch) 14 MG/24 HOUR 14 Milligram smoking cessation Refills: 0 PATCH.[email or web address] Apply 1 patch topically daily. Remove before bedtime. Last Taken:11/30/16 Time:0800 Olanzapine Dose: ORAL, TWICE DAILY for Qty: 28 Called-in (Olanzapine) 2.5 MG 2.5 Milligram clear thoughts/mood Refills: 0 TABLET stability Take 1 tablet by mouth twice a day. Last Taken:11/30/16 Time:0800 Multivitamin (One Dose: ORAL, DAILY for vitamin Purchase over the counter None Daily Multivitamin) 1 Tablet support 1 EACH TABLET Take 1 tablet by mouth daily. Last Taken:11/30/16 Time:0800 CHANGES to Home Medications: Levothyroxine Sodium Dose: ORAL, DAILY for Sent to (Levothyroxine Sodium) 1 Tablet hypothyroidism Pharm 1 88 MCG TABLET Take 1 tablet po every morning before breakfast. (changed from: DAILY for THYROID [ No Instructions ]) CONTINUE taking these Home Medications: Methadone HCl (Methadone Dose: ORAL, DAILY for opiate HCl) 5 MG/5 ML SOLUTION 35 Milligram treatment Last Taken:11/30/16 RESUME AT [facility] Time:0800 Albuterol Sulfate Dose: Inhale through mouth, (Proair Hfa) 90 MCG 2 Puff as needed for ASTHMA HFA.AER.AD PER PT STOP taking these DISCONTINUED Home Medications: Clonidine HCl (Clonidine HCl) Dose: ORAL, TWICE DAILY for ANXIETY 0.1 MG TABLET 1 Tablet Reason Stopped: Per Doctor Decision 1: [id number], [address] [place] [address] [id number] Your Preferred Pharmacy [id number] [address] [place] [address] [phone] Multiple Neuroleptics: (X]) Not Applicable OR Document below three failed attempts at monotherapy, or a plan to taper to monotherapy, or augmentation of Clozapine. () Patient's Diet: Regular. Patient's Activity: No restrictions. DC Disposition: The patient to return to home and self care. Recommendations: The patient was advised to please take medications as prescribed. She was advised to follow up with outpatient rail transportation tabeler Dr. Avani Guidry for continued thyroid management. She was advised to follow up with [facility] in [place], [place] to resume methadone maintenance and start IOP. She was advised that in the event of an emergency to call 911/go to nearest emergency department. The patient verbalized understanding of all instructions. Referred To: [facility] [address] [facility] [address] [place], [place] [phone] *Patient to attend walk-in appointment today, 11/30/16, with Dr. Eason and for walk-in IOP intake. Bienvenido RYDER,Avani [address] [place], [place] [id number] [phone] *Patient to follow up with existing outpatient appointment with established rail transportation tabeler Dr. Avani Guidry. [facility] [address] [place] [address] [phone] *Appointment on 12/01/16 at 4PM. Copies To: [facility]; Smoking Cessation Program; BIENVENIDO RYDER,AVANI
--- NOTE | 2016-11-30 11:57 | SOCIAL WORKER PROG NOTE PSYCH ---
Social Work Progress Note Progress Note Patient is to discharge the hospital today. Patient reports feeling ready to go home today and denies SI/HI/AH/VH at present. She reports feeling like her current medication regiment is helping and does report continued desire to gradually taper off of methadone with [facility]. Patient plans to go to [facility] today and they have an open access program where appointments are not required to see prescribers and clinicians. Patient will be able to see Dr. Eason and her counselor today when she arrives today and they will help assist her into their IOP. Patient is aware of this although somewhat resistent due to her work schedule but ultimately has agreed to follow through with IOP. Patients mother and sister are on board as well and aware of discharge plan.
== END 2016-11-30 10:50 | DRG 885 ==
LOC: ERH 15:11 → CP SOUTH 11-24 12:01 → ERHI 11-24 12:01 → CP SOUTH 11-24 14:28
PROVIDERS: Physician Assistant Surgical; ADMIT Psychiatry & Neurology Psychiatry
DX: F33.3 Major depressive disorder, recurrent, severe with psychotic symptoms (principal); F11.20 Opioid dependence, uncomplicated; G89.29 Other chronic pain; M51.26 Other intervertebral disc displacement, lumbar region; E03.9 Hypothyroidism, unspecified
CPT/HCPCS: 36415; 80307; 81025; 93005; 93010; G0480; J3490